=== PATIENT | female | born 1965 | race Two or more races ===

== ENCOUNTER 2020-04-05 12:19 | Day surgery (SDC) | payer OTHER, SELFPAY ==
--- NOTE | 2020-04-04 11:04 | P.CONAN_ITS ---
Documented by User: Shruti Lezama 04/04/20 11:05 HPI - Anesthesia Eval Consult details Narrative: 54yo F for Epidural Steroid Injection,Transforaminal epidural Injection,L5 TO S1 [facility] Past Medical History Medical History Back pain Depression Social History Social History Smoking Status: Never smoker Use of substances other than those prescribed or required for medical reasons: Yes Substance Use Frequency: Socially Advance Directives: No Advance Directives Information Provided: No Meds Allergies Allergy/AdvReac Type Severity Reaction Status Date / Time aspirin Allergy Intermediate Abdominal Verified 04/05/20 12:30 Pain Compazine Allergy Severe Anaphylaxis Uncoded 04/05/20 12:30 Home Medications Medication Instructions Recorded Confirmed Type acetaminophen [Tylenol] 325 mg PO QID PRN 04/01/20 04/01/20 History buspirone 10 mg PO BID 04/01/20 04/01/20 History citalopram [Celexa] 20 mg PO DAILY 04/01/20 04/01/20 History loratadine 10 mg PO DAILY 04/01/20 04/01/20 History omega-3 fatty acids [Starr 3 Fish 1,000 mg PO DAILY 04/01/20 04/01/20 History Oil Concentrate] baclofen 20 mg PO BEDTIME 04/05/20 04/05/20 History sertraline mg PO DAILY 04/05/20 History Exam Exam Date and Time: April 04, 2020 1104 Assessment and Plan Assessment Anesthesia Assessment: Chart Reviewed Documented by User: Shanell Campos 04/05/20 12:49 [facility] Past Medical History Medical History Back pain Depression Social History Social History Smoking Status: Never smoker Use of substances other than those prescribed or required for medical reasons: Yes Substance Use Frequency: Socially Advance Directives: No Advance Directives Information Provided: No Meds Allergies Allergy/AdvReac Type Severity Reaction Status Date / Time aspirin Allergy Intermediate Abdominal Verified 04/05/20 12:30 Pain Compazine Allergy Severe Anaphylaxis Uncoded 04/05/20 12:30 Home Medications Medication Instructions Recorded Confirmed Type acetaminophen [Tylenol] 325 mg PO QID PRN 04/01/20 04/01/20 History buspirone 10 mg PO BID 04/01/20 04/01/20 History citalopram [Celexa] 20 mg PO DAILY 04/01/20 04/01/20 History loratadine 10 mg PO DAILY 04/01/20 04/01/20 History omega-3 fatty acids [Starr 3 Fish 1,000 mg PO DAILY 04/01/20 04/01/20 History Oil Concentrate] baclofen 20 mg PO BEDTIME 04/05/20 04/05/20 History sertraline mg PO DAILY 04/05/20 History Exam Airway Mallampati Class: II TM Dist: >3cm Neck ROM: Full Assessment and Plan Assessment Anesthesia Assessment: Anesthesia Plan Discussed and Chart Reviewed Final Anesthetic Review NPO: Yes ASA Class: II Final Preanesthetic Review: No Changes in Pt Med Stat, Meds/Allgs Chart Reviewed, Consent Obtained/Reviewed and Anes Risks/Benef Reviewed Patient Risk: Low Procedure Risk: Low Assessment/Block/Sedation in SS: Assess/Block/Sedation-SS Anesthetic Plan Anesthetic Plan: MAC: Disposition: Standard PACU
--- NOTE | 2020-04-05 07:51 | MHC.SHP ---
Pre-Procedural Eval Section B Chief Complaint: RADICULOPATHY LUMBAR REGION Details of Present Illness: DDD lumbar spine Allergies: Allergies Allergy/AdvReac Type Severity Reaction Status Date / Time aspirin Allergy Unknown Verified 01/04/20 00:00 Compazine Allergy Unknown Uncoded 01/04/20 00:00 Review of Systems Sugical H&P ROS: Negative: Constitution, Cardiovascular, Respiratory, Neurological, Psychiatric, Hem-Onc, Allergic/Immunologic, Gastrointestinal, Genitourinary, Musculoskeletal, Integumentary, Endocrine and Eyes/Ears/Nose/Throat Exam Surgical H&P Exam: Normal: HEENT, Normal: Heart, Normal: Lungs, Normal: Extremities, Normal: Abdomen, Normal: Skin and Normal: Neurological Plan Diagnosis/Plan: Unchanged Patient has been examined and remains a candidate for the planned procedure
[2020-04-05 12:31] VITALS: BMI 24.4
[2020-04-05 12:41] VITALS: BP 155/90; PULSE 62; RESP 16; TEMP 36.3; O2SAT 100
[2020-04-05] MEDS: Lactated Ringers 1,000 ML 100 ML IVCONT (12:49)
--- NOTE | 2020-04-05 12:55 | FL_ITS ---
EXAMINATION: XR FLUOROSCOPY WITH IMAGES CLINICAL INFORMATION: Fluoroscopy for epidural steroid injection lumbosacral junction COMPARISON: Fluoroscopic spot images 06/20/2019 TECHNIQUE: Fluoroscopy performed by Dr. Hill High. Fluoroscopy time: 0.5 minutes DAP: 4.21 Gycm2 Images: 2 FINDINGS: There is interlaminar spinal needle at level L5-S1. Contrast is seen in the posterior epidural space and likely transforaminal extension to the left. FL/FL guidance in OR IMPRESSION: Fluoroscopy for pain management procedure.
[2020-04-05 13:39] VITALS: BP 120/66; PULSE 64; RESP 14; TEMP 36.3; O2SAT 99
[2020-04-05 13:54] VITALS: BP 122/79; PULSE 70; RESP 18; O2SAT 99
[2020-04-05 14:05] VITALS: BP 146/80; PULSE 67; RESP 16; O2SAT 99
--- NOTE | 2020-04-05 16:11 | P.OP_ITS ---
Operative Note Operative Note Narrative: Maggiis very pleasant 54 years old lady who came today into the operating room for implantation of spinal cord stimulator for the treatment of pain related to degenerative disc disease. After obtaining informed consent patient was brought to the operating room, she was positioned prone on operating table, [employer] monitors were applied and patient was deeply sedated. Time-out was performed delineating correct site, side, the nature of the procedure, patient's allergy, preoperative antibiotic. All operating room staff was participating in OR time-out procedure. Patient's low back was prepped with ChloraPrep twice and draped with utility drapes. Sterilely draped C-arm was brought over operating field and sqare picture of L5 vertebrae as was demonstrated on the screen. tilting machine ipsilateral to the left side picture of the pedicle of L5 vertebra on the left was delineated on the screen. 3 mm below the most lowest point of the pedicle the skin infiltration with lidocaine 1% was performed. After that 22 gauge 5 in needle was inserted through the skin and started to advance alongside the x-ray beam in tunnel vision fashion. Several attempts were made to advance the needle into the anterior epidural space. Each time advancement ended up in bony structures a and injection of the contrast demonstrated only perineural spread of the contrast material and no spread of the contrast into the epidural space. The location and the position of L5 vertebra seem to be very much compromise. The interspace between L5 and S1 is practically non-existent. The needle was withdrawn and decision was made to attempt interlaminar epidural steroid injection to alleviate symptoms of the patient. 20 gauge Touhy needle was inserted in the projection of the lamina of the S1 on the left and needle started to advance toward midline epidural space. Loss of resistance technique to air was used to locate epidural space. When loss of resistance felt injection of the contrast was performed demonstrating spread of the contrast in the posterior epidural space. After that treatment solution containing 4 cc of lidocaine 1% preservative-free mixed with Kenalog 40 mg was injected into the epidural space of the patient. The needle was removed sterile dressings were applied. Patient tolerated procedure well she was transferred to PACU where she recovered uneventfully. She went home without immediate complications.
== END 2020-04-05 14:35 | disposition home or self-care (01) ==
PROVIDERS: Visit Provider Anesthesiology
PROC: 3E0R33Z Introduction of Anti-inflammatory into Spinal Canal, Percutaneous Approach (ICD-10-PCS; CPT 62323; principal; 2020-04-05 13:30)
DX: M54.16 Radiculopathy, lumbar region (principal); M47.816 Spondylosis without myelopathy or radiculopathy, lumbar region; Z79.899 Other long term (current) drug therapy; Z88.8 Allergy status to other drugs, medicaments and biological substances
CPT/HCPCS: 62323; J2250; J3010; J3300; Q9967

== ENCOUNTER → 2020-11-11 08:46 | Outpatient (BNVA) | payer OTHER, SELFPAY | PROVIDERS: Visit Provider Anesthesiology | DX: M79.18 Myalgia, other site (principal); M51.36 Other intervertebral disc degeneration, lumbar region | CPT/HCPCS: 99212 ==

== ENCOUNTER → 2021-03-12 08:41 | Outpatient (BNVA) | payer OTHER, SELFPAY | PROVIDERS: PCP Internal Medicine; Visit Provider Anesthesiology | DX: M79.18 Myalgia, other site (principal); M51.36 Other intervertebral disc degeneration, lumbar region | CPT/HCPCS: 99212 ==

== ENCOUNTER 2021-05-26 08:00 | Outpatient (RCR) | payer OTHER, SELFPAY ==
--- NOTE | 2021-04-08 09:58 | MHC.PT.EP ---
[facility] [place] Office [place] Office [place] Office [address] Halle Curtis [address] [phone] F: [phone] F: [phone] F: [phone] F: [phone] Physical Therapy Plan of Care Date of Evaluation: Date of Surgery: spinal cord stimulator 04/05/20 Diagnosis: cervicalgia Assessment: Patient is a 55 year old R handed female who presents with s/s consistent with cervicalgia. She works with daily job demands including [employer] work but she does not lift more than 5 lbs. 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 Patient past medical history includes fibrymyalgia. Current impairments include pain, posture, ROM, strength, activity tolerance and functional mobility. Functional limitations include decreased ability to lift, carry, sit, turn head, drive, and perform weight bearing activities.. Patient is motivated with good rehab potential. Skilled PT will address impairments and functional limitations in order to achieve goals. Frequency and Duration: The patient will be seen 2x/week for 5 weeks Short Term Goals: I with HEP - 2 weeks C-spine rotation 74 b/l - 3 weeks Reduced LS TP - 3 weeks Usp Goals: Improved postural awareness - 5 weeks MT/LT 4/5 b/l - 5 weeks b/l ER 4/5 - 5 weeks NPDI 12% or less - 5 weeks Treatment Plan: Modalities to reduce pain, spasms and effusion. Manual therapy to restore motion and function. Therapeutic exercise to improve strength and flexibility. Neuromuscular re-education for posture and balance. Therapeutic activities to return to functional activities of daily living. Electronically signed by: Jonah Tucker, PT Please sign and return to therapist. Thank you for your referral.
--- NOTE | 2021-08-01 10:54 | MHC.PT.DC ---
[facility] [place] Office [place] Office [place] Office [address] Halle Curtis [address] [phone] F: [phone] F: [phone] F: [phone] F: [phone] Physical Therapy Discharge Report Diagnosis: cervicalgia Date of Surgery: spinal cord stimulator attempted on 04/05/20 but unable - injection given Date of Evaluation: 04/08/21 Date of Discharge: 05/26/21 Treatments to Date: 6 Cancellations to Date: 0 No Shows to Date: 0 Discharge Status: Independent with HEP Discharge Summary: Pt elected to transition to HEP after 05/26 appointment. Improving postural awareness. Reduced tissue tension and good carryover with postural ex. We will discuss plan to d/c to HEP at next visit. Electronically signed by: Jonah Tucker, PT Please sign and return to therapist. Thank you for your referral.
== END 2021-08-01 10:54 | disposition home or self-care (01) ==
LOC: HO.PTCHIC 08:00
PROVIDERS: PCP Internal Medicine; Visit Provider Anesthesiology
DX: M54.2 Cervicalgia (principal)
CPT/HCPCS: 97014; 97110; 97140; 97162

== ENCOUNTER 2022-01-29 12:23 | Outpatient (REF) | payer OTHER, SELFPAY ==
[2022-01-29 13:49] LABS: MANUAL DIFF FLAG NO
[2022-01-29 13:53] LABS: Basophils Percent Auto 0.2 % (0-2); Eosinophils Absolute Auto 0.1 X10*3/uL (0.0-0.4); Hematocrit 40.5 % (37.0-47.0); Hemoglobin 13.2 g/dl (12.0-16.0); Imm Gran Abs Auto 0.01 X10*3/uL (0.00-0.03); Imm Gran Pct Auto 0.2 % (0.0-0.4); Lymphocytes Absolute Auto 2.2 X10*3/uL (1.2-4.9); Lymphocytes Percent Auto 44.3 % (20-40); Mean Corpuscular HGB Conc 32.6 g/dl (31.0-35.0); Mean Corpuscular Hemoglobin 26.5 pg (27.0-33.0); Mean Corpuscular Volume 81.3 fL (80.0-98.0); Mean Platelet Volume 11.8 fL (9.4-12.3); Monocytes Absolute Auto 0.4 X10*3/uL (0.1-1.2); Monocytes Percent Auto 8.6 % (2-11); Neutrophils Absolute Auto 2.2 x10*3/uL (2.0-8.3); Neutrophils Percent Auto 45.7 % (45-73); Platelet Count 241 X10*3/uL (160-400); Red Blood Count 4.98 X10*6/uL (4.20-5.50); Red Cell Distribution Width 12.9 % (11.0-16.0); White Blood Count 4.9 X10*3/uL (4.8-10.8)
[2022-01-29 14:14] LABS: Alanine Aminotransferase 19 U/L (0-31); Albumin Level 4.8 g/dL (3.5-5.0); Alkaline Phosphatase 82 U/L (39-117); Anion Gap 14 (12-20); Aspartate Amino Transferase 21 U/L (5-31); Bilirubin Total 0.3 mg/dL (0.0-1.0); Blood Urea Nitrogen 8 mg/dL (9-16); Carbon Dioxide 29 mmol/L (22-29); Chloride 101 mmol/L (96-108); Cholesterol 183 mg/dL; Estimated Glomerular Filt Rate > 60; Glucose Fasting 100 mg/dL (60-99); HDL Cholesterol 46 mg/dL; LDL Cholesterol Calculated 97 mg/dl; Potassium 4.5 mmol/L (3.3-5.1); Sodium 139 mmol/L (135-145); Triglycerides 204 mg/dL
== END 2022-01-29 12:24 | disposition home or self-care (01) ==
LOC: HO.10HDL 12:23
PROVIDERS: Visit Provider Internal Medicine
DX: Z00.00 Encounter for general adult medical examination without abnormal findings (principal); E78.00 Pure hypercholesterolemia, unspecified; F32.5 Major depressive disorder, single episode, in full remission; I10 Essential (primary) hypertension
CPT/HCPCS: 36415; 80053; 80061; 85025

== ENCOUNTER 2022-12-10 12:08 | Outpatient (REF) | payer OTHER, SELFPAY ==
[2022-12-10 14:42] LABS: Alanine Aminotransferase 20 U/L (0-31); Albumin Level 4.6 g/dL (3.5-5.0); Alkaline Phosphatase 76 U/L (39-117); Anion Gap 12 (12-20); Aspartate Amino Transferase 28 U/L (5-31); Bilirubin Total 0.7 mg/dL (0.0-1.0); Blood Urea Nitrogen 16 mg/dL (9-16); Calcium 10.1 mg/dL (8.4-10.2); Carbon Dioxide 27 mmol/L (22-29); Chloride 106 mmol/L (96-108); Cholesterol 166 mg/dL; Estimated Glomerular Filt Rate > 60; Glucose Fasting 101 mg/dL (60-99); HDL Cholesterol 44 mg/dL; LDL Cholesterol Calculated 93 mg/dl; Potassium 4.1 mmol/L (3.3-5.1); Sodium 141 mmol/L (135-145); Total Protein 7.5 g/dL (6.5-8.0); Triglycerides 145 mg/dL
== END 2022-12-10 12:09 | disposition home or self-care (01) ==
LOC: HO.10HDL 12:08
PROVIDERS: Visit Provider Internal Medicine
DX: E78.2 Mixed hyperlipidemia (principal); R19.5 Other fecal abnormalities
CPT/HCPCS: 36415; 80053; 80061; 85025

== ENCOUNTER 2023-01-01 09:22 | Day surgery (SDC) | payer OTHER, SELFPAY ==
--- NOTE | 2022-12-30 13:21 | HO.ANESPROP2 ---
Documented by User: Shruti Lezama NP 12/30/22 13:22 HPI - Anesthesia Eval Consult details Narrative: 57yo F for Colonoscopy PMFSH Active Problems Active Problems: All Active Problems (Updated 03/12/21 @ 09:03 by Hill High MD) Cervicalgia (Acute) Disc degeneration, lumbar (Acute) Myofascial pain syndrome (Acute) Past Medical History Medical History Anxiety Back pain Cervicalgia COVID-19 Depression Disc degeneration, lumbar HLD (hyperlipidemia) Myofascial pain syndrome Surgical History Surgical History (Updated 01/01/23 @ 10:32 by Nayely Juárez RN) H/O: hysterectomy Hx of colonoscopy Social History Social History Patient Tobacco Use Status: Former Tobacco user Are you DNR?: No Advance Directives: No Advance Directives Information Provided: Yes Nutrition Risks: No Nutritional Risk Meds Allergies Allergy/AdvReac Type Severity Reaction Status Date / Time aspirin Allergy Intermediate Abdominal Verified 01/01/23 10:33 Pain Compazine Allergy Severe Anaphylaxis Uncoded 04/05/20 12:30 Home Medications Medication Instructions Recorded Confirmed Last Taken Type acetaminophen 325 mg tablet 325 mg PO QID PRN Pain 04/01/20 11/11/20 Unknown History (Tylenol) buspirone 10 mg tablet 10 mg PO BID 04/01/20 11/11/20 Unknown History citalopram 20 mg tablet (Celexa) 20 mg PO DAILY 04/01/20 11/11/20 Unknown History loratadine 10 mg tablet 10 mg PO DAILY 04/01/20 11/11/20 Unknown History omega-3 fatty acids 1,000 mg PO DAILY 04/01/20 11/11/20 Unknown History baclofen 20 mg tablet 20 mg PO BEDTIME 04/05/20 11/11/20 Unknown History duloxetine 30 mg capsule,delayed 30 mg PO DAILY 03/12/21 Unknown History release Exam Exam Date and Time: December 30, 2022 1321 Pertinent Lab Results Pertinent Lab Results: Laboratory Tests 12/10/22 12/10/22 12:16 12:16 WBC 3.7 L Hgb 12.4 Hct 37.9 Plt Count 194 Sodium 141 Potassium 4.1 Chloride 106 Carbon Dioxide 27 BUN 16 Creatinine 0.76 Assessment and Plan Assessment Anesthesia Assessment: Chart Reviewed Documented by User: Amber Singh MD 01/01/23 11:13 PMF Past Medical History Medical History Anxiety Back pain Cervicalgia COVID-19 Depression Disc degeneration, lumbar HLD (hyperlipidemia) Myofascial pain syndrome Family History Family history of problems with anesthesia: No Surgical History Surgical History (Updated 01/01/23 @ 10:32 by Nayely Juárez RN) H/O: hysterectomy Hx of colonoscopy History of Problems with Anesthesia: No Social History Social History Patient Tobacco Use Status: Former Tobacco user Are you DNR?: No Advance Directives: No Advance Directives Information Provided: Yes Nutrition Risks: No Nutritional Risk Meds Allergies Allergy/AdvReac Type Severity Reaction Status Date / Time aspirin Allergy Intermediate Abdominal Verified 01/01/23 10:33 Pain Compazine Allergy Severe Anaphylaxis Uncoded 04/05/20 12:30 Home Medications Medication Instructions Recorded Confirmed Last Taken Type acetaminophen 325 mg tablet 325 mg PO QID PRN Pain 04/01/20 11/11/20 Unknown History (Tylenol) buspirone 10 mg tablet 10 mg PO BID 04/01/20 11/11/20 Unknown History citalopram 20 mg tablet (Celexa) 20 mg PO DAILY 04/01/20 11/11/20 Unknown History loratadine 10 mg tablet 10 mg PO DAILY 04/01/20 11/11/20 Unknown History omega-3 fatty acids 1,000 mg PO DAILY 04/01/20 11/11/20 Unknown History baclofen 20 mg tablet 20 mg PO BEDTIME 04/05/20 11/11/20 Unknown History duloxetine 30 mg capsule,delayed 30 mg PO DAILY 03/12/21 Unknown History release Exam Airway Mallampati Class: I TM Dist: >3cm Neck ROM: Full Loose/Missing/Broken Teeth: Yes and No Heart: rr Lungs: cta Assessment and Plan Assessment Anesthesia Assessment: Anesthesia Plan Discussed Final Anesthetic Review Family History of Problems with Anesthesia: No History of Problems with Anesthesia: No NPO: Yes ASA Class: II Final Preanesthetic Review: No Changes in Pt Med Stat, Meds/Allgs Chart Reviewed, Consent Obtained/Reviewed and Anes Risks/Benef Reviewed Patient Risk: Low Procedure Risk: Low Anesthetic Plan Anesthetic Plan: MAC: Disposition: Standard PACU
[2023-01-01 06:22] VITALS: BMI 23.4
--- OUTSIDE RECORDS SUMMARY | 2023-01-01 09:24 | XMS_ITS | Continuity of Care Document ---
Author Name Unknown Organization [facility] [employer] Address [address], [address] [place] [address]- Care Team Providers Care Landscape Painter Name Role Phone Abril De Paz DO Primary Care Physician [phone] Encounter [place] Date(s): 04/04/20 - 04/11/20 [facility] [employer] [address], [address] [place] [address]- Attending Physician: Savannah PORTILLO, Hany Scott Allergies, Adverse Reactions, Alerts Substance Reaction Severity Status aspirin STOMACH PAIN CAUSE A HOLE Ac tive Compazine difficulty breathing Active Immunizations Not Given Vaccine Date Status Refusal Reason influenza virus vaccine, inactivated 05/08/15 Not Given Patient Refuses pneumococcal 23-valent vaccine 05/08/15 Not Given Patient Refuses Medications Fish Oil By Mouth, 0 Refills, Maintenance, 02/27/16 15:36:24 Start Date: 02/27/16 Status: Ordered ibuprofen 600 mg oral tablet 1 tablet = 600 mg, By Mouth, Every 6 hours, # 40 tablet, 2 Refills, Maintenance, 05/09/15 16:05:12,Tablet Start Date: 05/09/15 Status: Ordered Multivitamin Daily, 0 Refills, Maintenance, 02/27/16 15:36:36 Start Date: 02/27/16 Status: Ordered Pt. states she takes Avamigran, for migraines. It is a medicine she recieved the medication form Pt. states she takes Avamigran, for migraines. It is a medicine she recieved the medication form [facility] Refills 0, Maintenance, 10/08/15 10:00:03, Compound Start Date: 10/08/15 Status: Ordered Tylenol 325 mg oral tablet 325 mg, 1, tablet, By Mouth, PRN, Refills 0, Maintenance, Migraine Headache, 10/08/15 10:02:13 Start Date: 10/08/15 Status: Ordered Vitamin D3 By Mouth, 0 Refills, Maintenance, 04/07/18 11:29:20 EDT Start Date: 04/07/18 Status: Ordered Problem List Condition Effective Dates Status Health Status Inform ant Anxiety(Confirmed) Active Overactive bladder(Confirmed) Active Last pap smear 02/07/15 negati ve with negative HPV. 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 Carpet Binder recommended for visits(Confirmed) Active Menopausal state(Confirmed) Active Osteopenia on DEXA scan from [facility] 02/11/18. Femurs T score -1.5, z score -0.8. Spine normal(Confirmed) Active Possible pelvic mass - dilat ed tubular structure inseparable on MRI from the right ovary. Not seen on ultrasound. See 04/07/18 note and addendums. ALEXEI score low risk(Confirmed) Active Poor historian - no ability to distinguish between relevant and non-relevant history(Confirmed) Active Frequent UTI(Confirmed) Active Sciatica(Confirmed) Active Vitamin D deficiency(Confirmed) Active Vital Signs Most recent to oldest [Reference Range]: 1 Height 152.40 cm (04/04/20 10:36 AM) Weight 58.18 kg (04/04/20 10:36 AM) Body Mass Index [18.5-24.99] 25.05 *H* (04/04/20 10:36 AM) Blood Pressure [90-138/55-84 mm Hg] 122/ 82mm Hg (04/04/20 10:36 AM) Blood pressure sites Arm, left (04/04/20 10:36 AM) Weight Obtained Via Standing scale (04/04/20 10:36 AM) Social History Social History Type Response Smoking Status Former smoker; Type: Cigarettes; Other: quit 17 years ago; entered on: 02/07/15 Sex
--- OUTSIDE RECORDS SUMMARY | 2023-01-01 09:24 | XMS_ITS | Continuity of Care Document ---
Author Name Unknown Organization [facility] [employer] Address [address], [address] [place] [address]- Care Team Providers Care History Faculty Member Name Role Phone Adela PORTILLO, Evy Primary Care Physician Encounter [facility] Date(s): 08/22/20 - 08/29/20 [facility] [employer] [address], [address] [place] [address]- Attending Physician: Savannah PORTILLO, Hany Scott Allergies, Adverse Reactions, Alerts Substance Reaction Severity Status aspirin STOMACH PAIN CAUSE A HOLE Ac tive Compazine difficulty breathing Active Immunizations Not Given Vaccine Date Status Refusal Reason pneumococcal 23-valent vaccine 05/08/15 Not Given Patient Refuses influenza virus vaccine, inactivated 05/08/15 Not Given Patient Refuses Medications escitalopram 5 mg oral tablet 1 tablet = 5 mg, By Mouth, Daily, # 30 tablet, 2 Refills, Maintenance, 08/05/20 9:16:00 EST, Tablet, [id number], Partial fill upon patient request if the prescription is for a schedule II opioid drug., 152.4, cm, 08/05/20 8:07:00 EST, Height Start Date: 08/05/20 Status: Ordered Fish Oil By Mouth, 0 Refills, Maintenance, 02/27/16 15:36:24 Start Date: 02/27/16 Status: Ordered ibuprofen 600 mg oral tablet 1 tablet = 600 mg, By Mouth, Every 6 hours, # 40 tablet, 2 Refills, Maintenance, 05/09/15 16:05:12,Tablet Start Date: 05/09/15 Status: Ordered Multivitamin Daily, 0 Refills, Maintenance, 02/27/16 15:36:36 Start Date: 02/27/16 Status: Ordered Tylenol 325 mg oral tablet [...] pap smears needed(Confirmed) Active Cervical radiculitis(Confirmed) Active Chronic low back pain with sciatica(Confirmed) Active Migraines without aura(Confirmed) Active Multicystic right ovary - se e ultrasound report 03/18/18(Confirmed) Active Depression(Confirmed) Active Former smoker - quit in 1999(Confirmed) Active 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 Femurs T score -1.5, z score [...] oldest [Reference Range]: 1 Height 152.40 cm (08/22/20 4:04 PM) Weight 54.4 kg (08/22/20 4:04 PM) Body Mass Index [18.5-24.99] 23.42 (08/22/20 4:04 PM) Blood Pressure [90-138/55-84 mm Hg] 118/ 80mm Hg (08/22/20 4:04 PM) Blood pressure sites Arm, left (08/22/20 4:04 PM) Weight Obtained Via Standing scale (08/22/20 4:04 PM) Social History Social History Type Response Smoking Status Former smoker, quit more than 30 days ago; Type: Cigarettes; Started at age: 17; Tobacco use times per day: 1 PPD; Stopped at age: 34; entered on: 08/05/20 Sex
--- OUTSIDE RECORDS SUMMARY | 2023-01-01 09:24 | XMS_ITS | Continuity of Care Document ---
Author Name Unknown Organization [facility] Adult Address [address] [place] [address]- Care Team Providers Care Case Management Associate Name Role Phone Evy Chapman MD Primary [id number] Adult [address] [place] [address]- Encounter Diagnosis Depression(Discharge Diagnosis) - 11/15/20 Anxiety(Discharge Diagnosis) - 11/15/20 Cervical radiculitis(Discharge Diagnosis) - 11/15/20 Chronic low back pain with sciatica(Discharge Diagnosis) - 11/15/20 Hypercholesterolemia(Discharge Diagnosis) - 11/15/20 Hypertriglyceridemia(Discharge Diagnosis) - 11/15/20 Vitamin D deficiency(Discharge Diagnosis) - 11/15/20 Diabetes mellitus screening(Discharge Diagnosis) - 11/15/20 Attending Physician: Jorge Chapman MDlis Allergies, Adverse Reactions, Alerts Substance Reaction Severity Status aspirin STOMACH PAIN CAUSE A HOLE Ac tive Compazine difficulty breathing Active Immunizations Not Given Vaccine Date Status Refusal Reason pneumococcal 23-valent vaccine 05/08/15 Not Given Patient Refuses influenza virus vaccine, inactivated 05/08/15 Not Given Patient Refuses Medications escitalopram 5 mg oral tablet 1 tablet = 5 mg, By Mouth, Daily, # 90 tablet, 1 Refills, Maintenance, 11/15/20 15:30:00 EDT, Tablet, [facility]/pharmacy #[id number], Partial fill upon patient request if the prescription is for a schedule II opioid drug., 152, cm, 11/15/20 14:51:00 EDT, Height Start Date: 11/15/20 Status: Ordered Fish Oil By Mouth, 0 Refills, Maintenance, 02/27/16 15:36:24 Start Date: 02/27/16 Status: Ordered ibuprofen 600 mg oral tablet 1 tablet = 600 mg, By Mouth, Every 6 hours, # 40 tablet, 2 Refills, Maintenance, 05/09/15 16:05:12,Tablet Start Date: 05/09/15 Status: Ordered loratadine 10 mg oral tablet 10 mg, 1, tablet, By Mouth, Daily, # 90 tablet, Refills 1, Tot. Refills 1, Maintenance, 11/15/20 15:30:00 EDT, Route to Pharmacy Electronically, [facility]/pharmacy #[id number], Partial fill upon patient request if the prescription is for a schedule II opioid drug... Start Date: 11/15/20 Status: Ordered Multivitamin Daily, 0 Refills, Maintenance, [...] state(Confirmed) Active Osteopenia on DEXA scan from [facility] 02/11/18. Femurs T score -1.5, z score -0.8. Spine normal(Confirmed) Active Possible pelvic mass - dilat ed tubular structure inseparable on MRI from the right ovary. Not seen on ultrasound. See 04/07/18 note and addendums. ALEXEI score low risk(Confirmed) Active Poor historian - no ability to distinguish between relevant and non-relevant history(Confirmed) Active Frequent UTI(Confirmed) Active Vitamin D deficiency(Confirmed) Active Diagnosis Diagnosis Type Effective Dates Health Status Clinical Service Informant Depression Discharge Diagnosis 11/15/20 Anxiety Discharge Diagnosis 11/15/20 Cervical radiculitis Discharge Diagnosis 11/15/20 Chronic low back pain with sciatica Discharge Diagnosis 11/15/20 Hypercholesterolemia Discharge Diagnosis 11/15/20 Hypertriglyceridemia Discharge Diagnosis 11/15/20 Vitamin D deficiency Discharge Diagnosis 11/15/20 Diabetes mellitus screening Discharge Diagnosis 11/15/20 Vital Signs Most recent to oldest [Reference Range]: 1 Height 152 cm (11/15/20 2:51 PM) Weight 55.6 kg (11/15/20 2:51 PM) Oxygen Saturation [94-100 %] 97 % (11/15/20 2:51 PM) Pulse Rate [55-90 bpm] 81 bpm (11/15/20 2:51 PM) Body Mass Index [18.5-24.99] 24.07 (11/15/20 2:51 PM) Blood Pressure [90-138/55-84 mm Hg] 115/ 72mm Hg (11/15/20 2:51 PM) Mode of Delivery (Oxygen) Room air (11/15/20 2:51 PM) Blood pressure sites Arm, left (11/15/20 2:51 PM) Weight Obtained Via Standing scale (11/15/20 2:51 PM) Social History Social History Type Response Smoking Status Former smoker, quit more than 30 days ago; Type: Cigarettes; Started at age: 17; Tobacco use times per day: 1 PPD; Stopped at age: 34; entered on: 08/05/20 Sex
--- OUTSIDE RECORDS SUMMARY | 2023-01-01 09:24 | XMS_ITS | Continuity of Care Document ---
Author Name Unknown Organization [facility] Adult Address [address] [place] [address]- Care Team Providers Care Beach Patrol Lieutenant Name Role Phone Adela PORTILLO, Evy Primary Care Physician [place] [facility] [place](s): 03/17/21 - 04/16/21 [facility] Adult [address] [place] [address]- Allergies, Adverse Reactions, Alerts Substance Reaction Severity [...] 1 Refills, Maintenance, 11/15/20 15:30:00 EDT, Tablet, [facility]/pharmacy #[id number], Partial fill upon patient request if the [...] 11/15/20 15:30:00 EDT, Route to Pharmacy Electronically, [id number], Partial fill upon patient request if the [...] state(Confirmed) Active Osteopenia on DEXA scan from [facility] 02/11/18. Femurs T score -1.5, z score -0.8. Spine normal(Confirmed) Active Possible pelvic mass - dilat ed tubular structure inseparable on MRI from the right ovary. Not seen on ultrasound. See 04/07/18 note and addendums. ALEXEI score low risk(Confirmed) Active Poor historian - no ability to distinguish between relevant and non-relevant history(Confirmed) Active Frequent UTI(Confirmed) Active Vitamin D deficiency(Confirmed) Active Social History Social History Type Response Smoking Status Former smoker, quit more than 30 days ago; Type: Cigarettes; Tobacco use times per day: 1 PPD; Started at age: 17; Stopped at age: 34; entered on: 08/05/20 Sex
--- OUTSIDE RECORDS SUMMARY | 2023-01-01 09:24 | XMS_ITS | Continuity of Care Document ---
Author Name Unknown Organization [facility] [employer] Address [address], [address]t [place] [address]- Care Team Providers Care Deputy United States Marshal Name Role Phone Abril De Paz DO Primary Care Physician [facility] [facility] Date[place] 03/21/20 - 03/28/20 [facility] [employer] [address], [address]th [place] [address]- [facility] Attending Physician: Savannah PORTILLO, Hany Scott Referring Physician: Not on Staff, Referring MD Allergies, Adverse Reactions, Alerts Substance Reaction Severity [...] medicine she recieved the medication form [facility] [employer] [facility] Refills 0, Maintenance, 10/08/15 10:00:03, Compound [...] pap smear 02/07/15 negati ve with negative HPV(Confirmed) Active Cervical radiculitis(Confirmed) Active Migraines without aura(Confirmed) Active Multicystic right ovary - se e ultrasound report 03/18/18(Confirmed) Active Former smoker - quit in 1999(Confirmed) Active 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 7Th Grade Social Studies Teacher recommended for visits(Confirmed) Active Menopausal state(Confirmed) Active Osteopenia on DEXA scan from [facility] 02/11/18. Fermurs T score -1.5, z score -0.8. Spine [...] oldest [Reference Range]: 1 Height 152.40 cm (03/21/20 5:12 PM) Weight 58.18 kg (03/21/20 5:12 PM) Body Mass Index [18.5-24.99] 25.05 *H* (03/21/20 5:12 PM) Blood Pressure [90-138/55-84 mm Hg] 148/ 98mm Hg *H* (03/21/20 5:12 PM) Blood pressure sites Arm, left (03/21/20 5:12 PM) Weight Obtained Via Standing scale (03/21/20 5:12 PM) Social History Social History Type Response Smoking Status Former smoker; Type: Cigarettes; Other: quit 17 years ago; entered on: 02/07/15 Sex
--- OUTSIDE RECORDS SUMMARY | 2023-01-01 09:24 | XMS_ITS | Continuity of Care Document ---
Author Name Unknown Organization [facility] Address [address] [place] [address]- Care Team Providers Care Savings Counselor Name Role Phone Adela PORTILLO, Evy Primary Care Physician Encounter 05/04/22 - 06/05/22 [facility] [address], [address] [place] [address]- Attending Physician: Claudette Pineda MD Admitting Physician: Claudette Pineda MD Referring Physician: Claudette Pineda MD Allergies, Adverse Reactions, Alerts Substance Reaction [...] Maintenance, 11/15/20 15:30:00 EDT, Tablet, [facility]/pharmacy #[id number], Partial fill upon patient request if the [...] 11/15/20 15:30:00 EDT, Route to Pharmacy Electronically, [facility]/pharmacy #[id number], Partial fill upon patient [...] Date: 04/07/18 Status: Ordered Problem List Condition Confirmation Course Effective Dates Status Health Status Informant Anxiety Confirmed Active Overactive bladder Confirmed Active Last pap smear 02/07/15 negative with negative HPV. 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 Femurs T score -1.5, z score -0.8. Spine normal Confirmed Active Possible pelvic mass - dilated tubular structure inseparable on MRI from the right ovary. Not seen on ultrasound. See 04/07/18 note and addendums. ALEXEI score low risk Confirmed Active Poor historian - no ability to distinguish between relevant and non-relevant history Confirmed Active Frequent UTI Confirmed Active Vitamin D deficiency Confirmed Active Social History Social History Type Response Smoking Status Former smoker, quit more than 30 days ago; Type: Cigarettes; Started at age: 17; Tobacco use times per day: 1 PPD; Stopped at age: 34; entered on: 08/05/20 Sex Patient Care team information Care Team Personnel Name: Evy Chapman MD Position: S Primary Care Physician Member Role: PCP Address: Address: [address] [place] [address] 3rd Floor [facility] [place] [address]- Care Team Related Persons Name: ERICA JURADO Address: home [address] [place] [address] Name: SEAN VIERA Address: home [address] [place] [address] Name: SILVESTRE KUMAR Address: home [address] [address]
--- OUTSIDE RECORDS SUMMARY | 2023-01-01 09:24 | XMS_ITS ---
Author Name Juan Arias Address [address] [place] [address] Organization [facility] Address [address] [place] [address] Care Team Providers Care Binding Cutter Name Role Phone Juan Arias Unavailable [phone] PROBLEMS Type Condition ICD9-CM Code GZH01-NH Code Onset Dates Condition Status SNOMED Code Problem Colon cancer screening Z12.11 Active 712364812 Problem Family history of colon cancer Z80.0 Active 354159695 Problem Rectal bleeding K62.5 Active 32199366 ALLERGIES Substance Reaction Event Type Date Status Compazine Unknown Drug Allergy October, Active ENCOUNTERS Encounter Location Date Diagnosis [facility] Outpatient [address] [place] [phone] Dec, [facility] [address] [place] [phone] October, [facility] [address] [place] [phone] October, Family history of colon cancer Z80.0 ; Rectal bleeding K62.5 and Colon cancer screening Z12.11 [facility] [address] [place] [phone] May, [facility] [address] [place] [phone] Mar, IMMUNIZATIONS No Known Immunizations SOCIAL HISTORY Qualifiers Date Never Smoker REASON FOR REFERRAL FUNCTIONAL STATUS PLAN OF CARE Activity Details VITAL SIGNS Weight 120 lbs 2022-10-16 Height 60 in 2022-10-16 BMI 23.43 kg/m2 2022-10-16 Temperature 98.4 degrees Fahrenheit Blood pressure systolic 000 mm Hg Blood pressure diastolic 00 mm Hg 2022-10 MEDICATIONS Medication Instructions Dosage Frequency Start Date End Date Duration Status Atorvastatin Calcium 40 MG 90 Active Dulcolax (colon prep) 5 MG Orally two tablets twice a day for one day take at 3:00 p.m and 7:00p.m. October, 1 day Active Benzonatate 200 MG 10 Active Loratadine 10 MG 30 Active MiraLax (colon prep) 17 GM/SCOOP Orally begin at 5:00 p.m. the day before the procedure 1 238 Gm bottle mixed with Gatorade or Crystal Light October, 1 day Active PROCEDURES Procedure Date Ordered Result Body Site BP SCR NOT PRFRM REC REASON NOS October 16, 2022 TOBACCO NON-USER October 16, 2022 DOC MEDS VERIFIED W/PT OR RE October 16, 2022 COLORECTAL CA SCREEN DOC REV October 16, 2022 RESULTS No Results REASON FOR VISIT screening, fam hx colon ca,rectal bleeding, bowel prep, Patient presents today for BLOOD IN STOOL, blood in stool, BLOOD IN STOOL, Patient presents today for blood in stool, r/s today appt at Insurance Providers Health Insurance Type Health Plan Insurance Address Health Plan Insurance Phone Health Plan Insurance Name Health Plan Coverage Dates Member ID Patient Relationship to Subscriber Patient Address Patient Phone Patient Name Patient Date of Subscriber ID Subscriber Name Subscriber Date of Group No [place] [address] [facility] [id number] [place] self KARTIK MARCE Martin [id number] 1 [employer] Plan [address] [address] [facility] [id number] [email or web address] [employer] Plan self KARTIK MARCE Martin [id number]
--- OUTSIDE RECORDS SUMMARY | 2023-01-01 09:24 | XMS_ITS | Continuity of Care Document ---
Author Name Unknown Organization [facility] Amy richardson [facility] Address [address], 4t [place] [address]- Care Team Providers Care Biotechnologist Name Role Phone Adela PORTILLO, Evy Primary Care Physician [place] [facility] [place]18[place]21 - 07/18/21 [facility] Amy Yeungs [facility] [address], [address]th [place] [address]- Allergies, Adverse Reactions, Alerts Substance Reaction Severity [...] 1 Refills, Maintenance, 11/15/20 15:30:00 EDT, Tablet, [facility]/pharmacy #[id number], Partial fill upon patient request if the [...] 11/15/20 15:30:00 EDT, Route to Pharmacy Electronically, [facility]/pharmacy #[id number], Partial fill upon patient request if [...] from [facility] 02/11/18. Femurs T score -1.5, z score [...]
--- OUTSIDE RECORDS SUMMARY | 2023-01-01 09:24 | XMS_ITS | Continuity of Care Document ---
Author Name Unknown Organization [facility] Address [address] [place] [address]- Care Team Providers Care Car Repossessor Name Role Phone Adela PORTILLO, Evy Primary Care Physician [place] [facility] [place] Date(s): 07/12/20 - 08/25/[address] [address]- Attending Physician: Hany Nuñze MD Admitting Physician: Hany Nuñez MD Referring Physician: Hany Nuñez MD Allergies, Adverse Reactions, Alerts Substance Reaction [...] Refills, Maintenance, 08/05/20 9:16:00 EST, Tablet, [id number], Partial fill upon patient request if the [...] state(Confirmed) Active Osteopenia on DEXA scan from [facility] 02/11/18. Femurs T score -1.5, z score -0.8. Spine normal(Confirmed) Active Possible pelvic mass - dilat ed tubular structure inseparable on MRI from the right ovary. Not seen on ultrasound. See 04/07/18 note and addendums. ALEXEI score low risk(Confirmed) Active Poor historian - no ability to distinguish between relevant and non-relevant history(Confirmed) Active Frequent UTI(Confirmed) Active Sciatica(Confirmed) Active Vitamin D deficiency(Confirmed) Active Social History Social History Type Response Smoking Status Former smoker, quit more than 30 days ago; Type: Cigarettes; Started at age: 17; Tobacco use times per day: 1 PPD; Stopped at age: 34; entered on: 08/05/20 Sex
--- OUTSIDE RECORDS SUMMARY | 2023-01-01 09:24 | XMS_ITS | Continuity of Care Document ---
Author Name Unknown Organization [facility] [employer] Address [address], 4t [place] [address]- Care Team Providers Care Construction Plant Operator Name Role Phone Abril De Paz DO Primary Care Physician [facility] [id number] Date(s): 08/10/19 - 08/20/19 [facility] [employer] [address], [address]th [place] [address]- Attending Physician: Admtr, Sloan Allergies, Adverse Reactions, Alerts Substance Reaction Severity Status aspirin STOMACH PAIN CAUSE A HOLE Ac tive Compazine difficulty breathing Active Immunizations Not Given Vaccine Date Status Refusal Reason influenza virus vaccine, inactivated 05/08/15 Not Given Patient Refuses pneumococcal 23-valent vaccine 05/08/15 Not Given Patient Refuses Medications alendronate 5 mg oral tablet 1 tablet = 5 mg, By Mouth, Daily, 0 Refills, Maintenance, 04/07/18 11:28:41 EDT Start Date: 04/07/18 Status: Ordered Fish Oil By Mouth, 0 [...] a medicine she recieved the medication form Th Pt. states she takes Avamigran, for migraines. [...] Former smoker - quit in 1999(Confirmed) Active Hypercholesterolemia(Confirmed) Active Hypertriglyceridemia(Confirmed) Active Insulin resistance syndrome/ early type II diabetes(Confirmed) Active Upper Sorbian speaking patient - h er Swedish is OK but not great. Potato Chip Fryer recommended for visits(Confirmed) Active Menopausal state(Confirmed) Active Oste[facility] scan [facility] 02/11/18. Fermurs T score -1.5, z score [...]
--- OUTSIDE RECORDS SUMMARY | 2023-01-01 09:24 | XMS_ITS | Continuity of Care Document ---
Author Name Unknown Organization [facility] [employer] Address [address], [address]t [place] [address]- Care Team Providers Care Coordinator Skill Training Program Name Role Phone Adela PORTILLO, Evy Primary Care Physician [place] [facility] Date(s): 08/07/20 - 09/06/20 [facility] Amy Yeungs [facility] [address], [address]th [place] [address]- Allergies, Adverse Reactions, Alerts Substance Reaction Severity [...] Refills, Maintenance, 08/05/20 9:16:00 EST, Tablet, [id number], Partial fill upon patient request if the [...] state(Confirmed) Active Osteopenia on DEXA scan from [facility] 02/11/18. Femurs T score -1.5, z [...]
--- OUTSIDE RECORDS SUMMARY | 2023-01-01 09:24 | XMS_ITS | Continuity of Care Document ---
Author Name Unknown Organization [facility] [employer] [facility] Address [address], 4t [place] [address]- Care Team Providers Care Education And Training Coordinator Name Role Phone Adela PORTILLO, Evy Primary Care Physician En[place] [facility] [place] Date(s): 08/22/20 - 09/21/20 [facility] [employer] [address], [address]th [place] [address]- Attending Physician: Admtr, Ar8 Allergies, Adverse Reactions, Alerts Substance Reaction Severity [...] Refills, Maintenance, 08/05/20 9:16:00 EST, Tablet, [id number], Partial fill upon patient request [...] scan from [facility] 02/11/18. Femurs T score -1.5, z score [...]
--- OUTSIDE RECORDS SUMMARY | 2023-01-01 09:24 | XMS_ITS | Continuity of Care Document ---
Author Name Unknown Organization [facility] Adult Address [address] [place] [address]- Care Team Providers Care Mechanical Engineering Manager Name Role Phone Adela PORTILLO, Evy Primary Care Physician [place] [facility] [place] 08/05/20 - 08/12/20 [facility] Adult [address] [place] [address]- Encounter Diagnosis Anxiety(Discharge Diagnosis) - 08/05/20 Depression(Discharge Diagnosis) - 08/05/20 Migraines without aura(Discharge Diagnosis) - 08/05/20 Hypertriglyceridemia(Discharge Diagnosis) - 08/05/20 Hypercholesterolemia(Discharge Diagnosis) - 08/05/20 Chronic low back pain with sciatica(Discharge Diagnosis) - 08/05/20 Attending Physician: Adela PORTILLO, Evy Allergies, Adverse Reactions, Alerts Substance Reaction Severity [...] 2 Refills, Maintenance, 08/05/20 9:16:00 EST, Tablet, [facility]/pharmacy #[id number], Partial fill upon patient request if the [...] Active Sciatica(Confirmed) Active Vitamin D deficiency(Confirmed) Active Diagnosis Diagnosis Type Effective Dates Health Status Clinical Service Informant Anxiety Discharge Diagnosis 08/05/20 Hypercholesterolemia Discharge Diagnosis 08/05/20 Hypertriglyceridemia Discharge Diagnosis 08/05/20 Migraines without aura Discharge Diagnosis 08/05/20 Depression Discharge Diagnosis 08/05/20 Chronic low back pain with sciatica Discharge Diagnosis 08/05/20 Procedures Procedure Date Related Diagnosis Body Site Status Cholecystectomy 2020 Completed Vital Signs Most recent to oldest [Reference Range]: 1 Height 152.40 cm (08/05/20 8:07 AM) Weight 56.3 kg (08/05/20 8:07 AM) Body Mass Index [18.5-24.99] 24.24 (08/05/20 8:07 AM) Weight Obtained Via Patient/family state d (08/05/20 8:07 AM) Social History Social History Type Response Smoking Status Former smoker, quit more than 30 days ago; Type: Cigarettes; Tobacco use times per day: 1 PPD; Started at age: 17; Stopped at age: 34; entered on: 08/05/20 Sex
[2023-01-01] MEDS: Lactated Ringers 1,000 ML 100 ML IVCONT (10:25)
[2023-01-01 10:32] VITALS: BP 134/84; PULSE 67; RESP 18; TEMP 36.6; O2SAT 99
--- NOTE | 2023-01-01 11:33 | P.BOP_ITS ---
Brief Operative Note Date of Service: 01/01/23 Pre-op diagnosis: Screening Post-op diagnosis: other (Diverticulosis, Internal hemorrhoids) Procedure: Colonoscopy to the cecum Surgeon: Juan Arias Anesthesia: MAC Was an Director Of Revenue used for this Procedure?: No Estimated blood loss (mL): 0 Pathology: none sent Condition: stable Disposition: PACU
[2023-01-01 11:35] VITALS: BP 107/62; PULSE 72; RESP 16; TEMP 36.8; O2SAT 100
[2023-01-01 11:50] VITALS: BP 118/75; PULSE 63; RESP 16; TEMP 36.7; O2SAT 100
[2023-01-01] MEDS: Acetaminophen 325 MG TABLET 650 MG PO (12:03)
--- NOTE | 2023-01-01 23:01 | OP_ITS ---
DATE OF SERVICE: 01/01/2023 SURGEON: Juan Arias MD INDICATIONS: The patient presents for evaluation of colorectal cancer screening, family history of colon cancer, and intermittent rectal bleeding. Full consent obtained from her for that, including risks of bleeding and perforation. PREOPERATIVE DIAGNOSIS: POSTOPERATIVE DIAGNOSIS: PROCEDURE PERFORMED: Colonoscopy to cecum. ESTIMATED BLOOD LOSS: COMPLICATIONS: ANESTHESIA: Medication used, monitored anesthesia care. ASSISTANTS: SPECIMENS: PREOPERATIVE DIAGNOSES: Colorectal cancer screening, family history of colon cancer and intermittent rectal bleeding. POSTOPERATIVE DIAGNOSES: Colorectal cancer screening, family history of colon cancer and intermittent rectal bleeding, sigmoid diverticulosis, and internal hemorrhoids. DESCRIPTION OF PROCEDURE: The patient was placed in the left lateral decubitus position. The digital rectal exam revealed no abnormalities. The Olympus video pediatric colonoscope was entered into the rectum and advanced easily to the cecum. Once in the cecum, I did identify normal-appearing cecal pouch with appendiceal orifice and a normal-appearing ileocecal valve. The entire cecum and ileocecal valve appeared normal. The scope was slowly withdrawn assessing all mucosal surfaces carefully. Preparation was excellent. I did not visualize any sign of polyps, colitis, nor angiodysplasia. There was a mild amount of sigmoid diverticulosis. In the rectum, scope was retroflexed visualizing internal hemorrhoids, but no other pathology. The rectal mucosa appeared normal. The scope was straightened and withdrawn the patient. She tolerated the procedure well and was returned to recovery area in stable condition. IMPRESSION: 1. Sigmoid diverticulosis. 2. Internal hemorrhoids. PLAN: Given her family history of colon cancer, I would recommend a followup coloscopy in 5 years for further screening. She will otherwise see me on a p.r.n. basis. MD ANISHA Matamoros/RICHY / [phone]
== END 2023-01-01 12:40 | disposition home or self-care (01) ==
PROVIDERS: PCP Internal Medicine; Visit Provider Internal Medicine
PROC: 0DJD8ZZ Inspection of Lower Intestinal Tract, Via Natural or Artificial Opening Endoscopic (ICD-10-PCS; CPT 45378; principal; 2023-01-01 10:40)
DX: Z12.11 Encounter for screening for malignant neoplasm of colon (principal); Z80.0 Family history of malignant neoplasm of digestive organs; K57.30 Diverticulosis of large intestine without perforation or abscess without bleeding; K64.8 Other hemorrhoids; E78.5 Hyperlipidemia, unspecified; F41.1 Generalized anxiety disorder; Z79.899 Other long term (current) drug therapy; Z88.8 Allergy status to other drugs, medicaments and biological substances; Z87.891 Personal history of nicotine dependence; Z86.16 Personal history of COVID-19
CPT/HCPCS: 45378; J2250

== ENCOUNTER 2023-08-02 09:07 | Outpatient (REF) | payer OTHER, SELFPAY ==
--- NOTE | ~2023-08-02 | XR_ITS ---
EXAMINATION: XR LUMBOSACRAL SPINE BENDING FILMS ONLY CLINICAL INFORMATION: Lumbosacral spondylolisthesis. COMPARISON: None available. TECHNIQUE: Lateral (neutral, flexion and extension) views of the lumbosacral spine are submitted. FINDINGS: Vertebral body heights are normal. At L5-S1, there is a 6 mm anterolisthesis. No instability is seen with flexion or extension. There is no acute fracture or spondylolisthesis. The posterior elements are intact. There is facet arthropathy at L4-L5 and L5-S1. There are upper abdominal surgical clips. XR/XR lumbar spine bending only IMPRESSION: 1. At L5-S1, there is a 6 cm anterolisthesis, which is stable with flexion or extension. 2. There is facet arthropathy at L4-L5 and L5-S1.
== END 2023-08-02 09:08 | disposition home or self-care (01) ==
LOC: HO.XRAY 09:07
PROVIDERS: PCP Internal Medicine; Visit Provider Anesthesiology
DX: M43.17 Spondylolisthesis, lumbosacral region (principal); M79.18 Myalgia, other site; M51.36 Other intervertebral disc degeneration, lumbar region
CPT/HCPCS: 72120; 99212

== ENCOUNTER 2023-08-02 09:07 | Outpatient (AMB) | payer OTHER, SELFPAY ==
--- NOTE | 2023-08-02 09:12 | MHC.OFFVIS ---
Intake Vital Signs 08/02/23 09:16 Height 5 ft Weight 118 lb 4 oz BMI 23.1 BP 138/72 Blood Pressure Location Lt brachial Position Sitting Respiration 14 Pulse 64 Pulse Source Pulse Oximeter Pulse Oximetry (%) 100 Oxygen Delivery Method Room Air Intake Visit Reasons: Follow up Intake Note: Patient comes in for follow up appointment. Reports pain 9/10. Allergies aspirin Allergy (Intermediate, Verified 08/02/23 09:16) Abdominal Pain Compazine Allergy (Severe, Uncoded 03/25/23 11:19) Anaphylaxis HPI HPI Comments History of Present Illness Details One there is very pleasant 58 years old female who is in my office after a long period of absence. In 2020 she was under my observation for radiculopathy of the lower lumbar spine with radiation into the right lower extremity all the way to her toes. Attempt to perform therapeutic L5-S1 transforaminal epidural steroid injection as well as attempt to perform interlaminar L5-S1 epidural steroid injection failed because the procedure was very difficult. The advancement of the needle met with bone formation on transforaminal approach and interlaminar approach was also unsuccessful because of the very small intervertebral interval. I after that send her for physical therapy and ordered her NSAIDs, she was very eager to start physical therapy, she continued home exercise program and her pain for a while got better. However now she reports that her employment duties require to be more physically active and her pain returned. She went for the MRI in May of 2023 and results of the MRI dictated as below. I offered her today to perform caudal epidural steroid injection with catheter. The patient agreed to go for the procedure. On the MRI she is also diagnosed with 5 mm L5-S1 anterolisthesis. In itself 5 mm maybe not significant number however flexion and extension x-rays forward and backward might aggravate this number and then it could be dangerous. We agreed that I will send her for the x-ray of the lumbar spine with bending. PFSH Medical History (Updated 08/02/23 @ 09:45 by Hill High MD) COVID-19 Anxiety HLD (hyperlipidemia) Cervicalgia Disc degeneration, lumbar Myofascial pain syndrome Back pain Depression Surgical History (Updated 03/25/23 @ 11:19 by Yusra Craig) Hx of colonoscopy H/O: hysterectomy Social History (System 03/25/23 @ 11:19 by Yusra A Rafa) Patient Tobacco Use Status: Former Tobacco user Review of Systems Const Denies excessive sweating and Denies fatigue Eyes Denies change in vision Card Denies chest pain at rest, Denies chest pain with activity, Denies diaphoresis, Denies syncope, Denies rapid heart rate and Denies pedal edema Resp Denies chest congestion, Denies cough, Denies hemoptysis, Denies pain on inspiration and Denies pain with cough GI Denies abdominal pain, Denies belching, Denies melena and Denies bloating Denies urinary incontinence Musc Reports as per HPI Neuro Denies confusion, Denies syncope, Denies memory loss and Denies seizure-like activity Psych Denies confusion, Denies irritability, Denies anhedonia, Denies memory loss, Denies visual hallucinations, Denies hallucinations, Denies tactile hallucinations, Denies homicidal ideation and Denies suicidal ideation Endo Denies excessive sweating and Denies fatigue Physical Exam Vital Signs: Last Vital Signs Pulse 64 08/02/23 09:16 Resp 14 08/02/23 09:16 BP 138/72 08/02/23 09:16 Pulse Ox 100 08/02/23 09:16 Oxygen Delivery Method Room Air 08/02/23 09:16 BMI result Body Mass Index 23.1 Const General: No confusion Orientation/consciousness: No confusion Eyes Pupils: Equal, round and reactive pupils present EOM: EOMs intact bilaterally Neck Neck: No full ROM (Limited range of motion in the neck.) Chest Chest palpation & inspection: normal inspection of the chest Resp Effort & Inspection: normal respiratory effort, able to speak in complete sentences, normal respiratory pattern, no audible wheezes and no cough Cardio Jugular venous distension: no JVD Back/Spine/Pelvis Other: tenderness on palpation in right-sided flank and chest,. Pain aggravation with deep breath.: no swelling or deformity, full ROM b/l hips, knees, ankles, with results with lumbar spine motions. SLR on the right results in significant pain aggravation,Lassegue test is also aggravate pain to stronger extend on the right. Neuro General: No confusion Cranial nerves: Yes Equal, round and reactive pupils present Psych Speech and movement: Normal speech and movement present Affect: normal affect Attitude: cooperative Results Reviewed Results Reviewed: MRI lumbar spine RAyus. 06/02/2023. Findings: Vertebral heights are well-maintained. Bone marrow signal is within normal limits. No suspicious osseous lesions are identified. Conus medullaris is unremarkable. Paraspinal soft tissues and visualized portion of the abdomen and pelvis are unremarkable. At L1-L2, L2-L3, L3-L4 there is no significant disc herniation or protrusion. No central canal or neural foraminal stenosis is demonstrated. At L4-5 there is no significant disc herniation or protrusion. No central canal or neural foraminal stenosis is demonstrated. There is loss of normal T2 hyperintense disc signal. There is a mild broad-based disc bulge and ligamentum flavum hypertrophy with mild uncovertebral hypertrophy. L5-S1 5 mm anterolisthesis. Diffuse loss of normal T2 hyperintense signal. Broad-based disc bulge with ligamentum flavum and uncovertebral hypertrophy without clinically significant central canal stenosis. There is lateral disc bulging worse on the right than on the left encroaching upon the right exiting L5 nerve root. This was worsened in the interval. Assessment & Plan Assessment & Plan (1) Spondylolisthesis at L5-S1 level: Code(s): M43.17 - Spondylolisthesis, lumbosacral region (2) Myofascial pain syndrome: Code(s): M79.18 - Myalgia, other site (3) Disc degeneration, lumbar: Code(s): M51.36 - Other intervertebral disc degeneration, lumbar region Plan MRI dictation is as above. I will schedule this patient for caudal ROSINA with catheter. Transforaminal and interlaminar L5-S1 were extremely difficult. Also will schedule this patient for x-ray lumbar spine with bending to evaluate anterolisthesis. I will see this patient after the injection. Orders: Orders XR lumbar spine bending only Today M43.17 - Spondylolisthesis, lumbosacral region Coding Level of Care Code Est Pt Level 4 (07240) Diagnoses Spondylolisthesis at L5-S1 level M43.17 Myofascial pain syndrome M79.18 Disc degeneration, lumbar M51.36
[2023-08-02 09:16] VITALS: BP 138/72; PULSE 64; RESP 14; O2SAT 100; BMI 23.1
== END 2023-08-02 09:46 | disposition home or self-care (01) ==
PROVIDERS: PCP Internal Medicine; Visit Provider Anesthesiology
DX: M43.17 Spondylolisthesis, lumbosacral region (principal); M79.18 Myalgia, other site; M51.36 Other intervertebral disc degeneration, lumbar region
CPT/HCPCS: 99214

== ENCOUNTER 2023-10-18 08:59 | Outpatient (AMB) | payer OTHER, SELFPAY ==
--- NOTE | 2023-10-18 09:02 | A.SPINEOV_ITS ---
Intake Visit Reasons: sciatica Intake Note: Ms. Sandoval is here today c/o low back sciatica pain. [employer] Required: No Allergies aspirin Allergy (Intermediate, Verified 08/02/23 09:16) Abdominal Pain Compazine Allergy (Severe, Uncoded 03/25/23 11:19) Anaphylaxis Assessment & Plan Assessment & Plan (1) Spondylolisthesis at L5-S1 level: Code(s): M43.17 - Spondylolisthesis, lumbosacral region Category: Medical Plan Dear Dr High, Thank you for referring Mrs Lori Grant to our office today. She is a very nice 58-year-old female who has been having radiculopathy in her legs since about December last year. She tells me that it started rather gradually but got significantly worse sometime last fall. It originally was just in the right leg was then transitioned to being both legs. She currently feels like the left side might be worse now. She sought out a conservative treatment in the form of physical therapy, pharmacist critical care. There was a component of back pain but the chiropractor seem to have fixed that. She tells me that at this point is really just radiculopathy down the legs that is bothering her. It is aggravated with standing walking and better when she sits. However she sits for too long she has to get up and move around. 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 Again she uses ibuprofen and Tylenol. An attempt was made to do cortisone injections to the L5 nerve in the foramen but this was met with bony resistance according to the notes and had to be aborted. A 2nd caudal block is going to be attempted but the patient tells me that they are waiting on insurance approval. She was sent to see us today for evaluation with MRI and x-ray showing spondylolisthesis at L5-S1. PMH: She is reasonably healthy, history of high cholesterol, depression/an xiety, hysterectomy, ovarian cyst removal, ganglion cyst removed from her wrist. Social hx: She does not smoke, drink or use any recreational drugs Medications: Citalopram, duloxetine, loratadine, Tylenol, and she takes vitamin supplements Allergies: Aspirin gives her stomach upset and Compazine made her short of breath Physical exam: She has an antalgic gait appears uncomfortable just walking down the hallway. Her strength is normal with the exception of some mild left dorsiflexion weakness. Reflexes are 3+ and symmetric. Imaging review: There is a lumbar MRI done at [facility] in May of 2023 as well as x-rays done at [facility]. This shows a grade 1 spondylolisthesis at L5-S1. She has relatively good disc height at this level. There is bilateral foraminal stenosis. I would rate it as moderate. In the upright and flexion-extension positions I do not see any overt instability but the spondylolisthesis may get slightly worse in the upright position. There is some very mild degeneration at L4-5. Impression: 58-year-old female presents to the office today for evaluation bilateral lower extremity pain, left greater than right with standing walking, better when she sits. The pain is described as going down into her posterolateral thighs into her calf and into her feet. She does not have any back pain to report. 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 She is tried conservative treatment as outlined above but her quality of life is suffering significantly. Her MRI shows a spondylolisthesis grade 1 at L5-S1, it may become slightly more exaggerated with standing but does not show any signs of instability. She overall has very only mild disc degeneration and height loss at this level. There is some nuance to her surgical situation in that typically in a situation where there is a spondylolisthesis and bilateral foraminal stenosis the temptation is to go right to fusion surgery. However, compared to our typical patient's, her disc height is not severely collapsed and she has no back pain. This may back the question that it may be optimum just to do a bilateral L5 foraminotomy and treat her leg pain. It would also make a significantly shorter recovery for her and she is the sole provider of income for her household. It concerns her that if she ended up needing a fusion that she would have to take 2-3 months off. It may not be realistic for her. I will review her imaging with Dr. Olson and get back to the patient with a final plan. Thank you for allowing us to care for your patient. The total time spent with this visit with this patient was 45 minutes reviewing history, physical exam, lumbar imaging review, and implementation of treatment plan or further diagnostic testing Teodoro Olson MD,PhD [facility] Coding Level of Care Code New Pt Level 4 (42893) Diagnoses Spondylolisthesis at L5-S1 level M43.17
== END 2023-10-18 11:49 | disposition home or self-care (01) ==
PROVIDERS: PCP Internal Medicine; Visit Provider Physician Assistant
DX: M43.17 Spondylolisthesis, lumbosacral region (principal)
CPT/HCPCS: 99204

== ENCOUNTER → 2023-10-18 08:59 | Outpatient (BNVA) | payer OTHER, SELFPAY | PROVIDERS: PCP Internal Medicine; Visit Provider Physician Assistant | DX: M43.17 Spondylolisthesis, lumbosacral region (principal) | CPT/HCPCS: 99202 ==

== ENCOUNTER 2023-10-22 07:00 | Outpatient (RCR) | payer OTHER, SELFPAY ==
--- NOTE | 2023-09-14 13:07 | MHC.OT.OEV ---
[address] [phone] F: [phone] Occupational Therapy Evaluation Patient Name: Chanel Grant Diagnosis: (R) Medial Epicondylitis Date of Onset: 04/07/24 Date of Surgery: Attending Provider: Claudette Pineda Prescribed Treatment: Follow Up Appointment: History of Current Condition: Patient is a 58 year old, right hand dominate female who presents with pain of the (R)elbow. She was referred by Claudette Pineda MD with a dx of (R)medial epicondylitis. She reported symptoms began approximately 6 months ago. She has noticed at times edema is present and will occasionally have tingling from the medial elbow to the lateral side of the forearm. Her main goal is to have the pain decrease and not return. 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 (I)ADLs/IADLs enjoys working out and yoga Living Situation, Family and/or Social Support: Lives with 19 year old son Current Level of Function and Occupation Self Care, Employment, Leisure: 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 Alleviating Factors: Tylenol, heat and ice Skin and Soft Tissue Assessment Skin and Soft Tissue: Comments: Skin intact Nerve assessment Ulnar Nerve: Right Impaired Median Nerve: Radial Nerve: Comments: Sensory Assessment Temperature: Light Touch: Proprioception: Vibration: Comments: [place] monofilament test= WFL Edema Assessment Upper Extremity: WNL Lower Extremity: Comments: No edema present Dexterity Assessment Dexterity: Comments: Finger opposition= WFL Functional Dexterity Test= WFL (R)25.85 seconds, (L)23.55 seconds Special Tests Comments: Tinel's Test (+) Medial epicondyle test (+) AROM(PROM) Strength Cervical Cervical Flexion: Cervical Extension: Cervical Lateral Flexion: Cervical Rotation: Comments: Shoulder Flexion: Extension: Abduction: Internal Rotation: External Rotation: Comments: WFL Flexion: Extension: Abduction: Internal Rotation: External Rotation: Comments: 4+/5 grossly Elbow Flexion: Extension: Pronation: Supination: Comments: WFL Flexion: Extension: Pronation: Supination: Comments: 4-/5 grossly Wrist Flexion: Extension: Ulnar Deviation: Radial Deviation: Comments: WFL Flexion: Extension: Ulnar Deviation: Radial Deviation: Comments: 3+/5 grossly Thumb Thumb CMC Flexion: Thumb MCP Flexion: Thumb IP Flexion: Radial Abduction: Palmar Abduction: [place] ([place] 0-10): Comments: WFL Digits Index MCP: PIP: DIP: Long MCP: PIP: DIP: Ring MCP: PIP: DIP: Small MCP: PIP: DIP: Comments: WFL Gross Grasp: (R)31.3lbs. (L)43.6lbs. Lateral Pinch: 15 Two-Point Pinch: 3 Three-Jaw Simon: 8 Comments: Patient Education Primary Language: Epoxy Fabrication Supervisor Required: Current Knowledge: Teaching Method: Education Needs Identified on Evaluation: How did patient/family demonstrate learning? Barriers to Learning: Readiness for Learning: Who was educated? Comments: Plan of Care Assessment: Patient is 58 y/o female who was referred to skilled OT for (R)Medial Epicondylitis. She reports pain of the elbow, tingling and at times edema. 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 She lives with 19 y/o son, in an apartment on the 3rd floor. She enjoys (yoga) but has stopped because of the pain in the elbow. Proactive Testing was (+) for medial epicondylitis . She reports 7/10 pain at rest and 9/10 during activity with occasional tingling. She achieved 31.3lbs. for urgent care physician strength which is under for patient's age and gender. Her current (R)UE ROM is WFLs. Functional Dexterity Test revealed her coordination is intact. Quick DASH= 52.3% indicating patient's perceived impairment of the UE. Based on the initial evaluation patient's CLOF is min (A)IADL tasks as patient presents with impaired strength, pain and impaired performance during self care tasks. Due to the documented impairments it is recommended that patient receive skilled OT in order for patient to achieve her PLOF of (I) during self care tasks and to perform her work duties pain free. Thank you for your referral. STG Duration: 2 weeks Short Term Goals: Patient will report pain from 9/10 to 6/10 pain in (R) elbow Patient will increase urgent care physician strength to 37lbs. for improved performance during self care tasks Patient will be (I) with pain management strategies Patient will be (I) with edema management strategies LTG Duration: 4 weeks Alf Goals: Patient will report 0/10 pain in (R)elbow Patient will be (I) with HEP Patient will have an improved Quick DASH score that is >30% Frequency and Duration: The patient will be seen 2x a week for 4 weeks Treatment Plan: Therapeutic Exercise Therapeutic Activity Home Exercise Program Splinting Patient Education Edema Control ADL Training Ultrasound Iontophoresis Fluidotherapy MHP Cold Packs Kinesiotaping Skilled OT evaluation and treat 2x a week for 4 weeks Electronically Signed By: CRIS Benito/Ayla, CLT Reviewed/agree with student documentation: Therapist: Please sign and return to therapist, Thank you for your referral.
--- NOTE | 2023-10-18 14:58 | MHC.OT.OP ---
[address] [phone] F: [phone] Occupational Therapy Progress Note Patient Name: Chanel Grant Diagnosis: (R) Medial Epicondylitis Date of Evaluation: 09/13/23 Treatments to Date: 8 Cancellations to Date: 1 No Shows to Date: 0 Subjective: I SEE THE DOCTOR ON WEDNESDAY THE 16 Pain Score: 5 Pain Location: (R)MEDIAL ELBOW Objective Measures: R GRASP 35 POUNDS (WITHOUT CFB - FORGOT AT HOME) ON 10/18/23 PREVIOUSLY 42 POUNDS WITH CFB ON 10/04/23 INITIAL EVAL 31 POUNDS 09/13/23 Status: Progressing Assessment: Pt HAS HAD SIX TREATMENTS OF DEX VIA IONTO TO R MEDIAL ELBOW. SHE REPORTS IMPROVEMENTS IN PAIN AND FUNCTIONAL ABILITIES. SHE IS WEARING HER CFB DURING WORK RELATED TASKS. Pt PROGRESSING WITH STRETCHING AND ECCENTRIC EXERCISES. RELIEF IS FOUND WITH USE OF ROCK TAPE. 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 for improved performance during self care tasks MET Patient will be (I) with pain management strategies MET Patient will be (I) with edema management strategies MET Care Home Goals: Patient will report 0/10 pain in (R)elbow Patient will be (I) with HEP Patient will have an improved Quick DASH score that is <30% Frequency and Duration: The patient will be seen 2X/WEEK FOR 2 WEEKS Treatment Plan: Therapeutic Exercise Therapeutic Activity Home Exercise Program Splinting Neuro Re-ed Patient Education Desensitization/Sensory Re-ed Edema Control ADL Training Ultrasound NMES Iontophoresis Paraffin Fluidotherapy MHP Cold Packs Joint Mobilization Soft Tissue Mobilization Kinesiotaping Other (see comments) Skilled OT evaluation and treat 2x a week for 4 weeks Electronically Signed By: MINDY SALEEM OTR/Ayla Reviewed/agree with student documentation: N/A Therapist:
--- NOTE | 2023-11-09 14:31 | MHC.OT.DC ---
[address] [phone] F: [phone] Occupational Therapy Discharge Note Patient Name: Chanel Grant Provider: Dr Claudette Pineda Diagnosis: (R) Medial Epicondylitis Date of Evaluation: 09/13/23 Date of Discharge: 11/09/23 Treatments to Date: 9 Cancellations to Date: 1 No Shows to Date: 0 Discharge Status: Independent with HEP Patient Elected to Stop Discharge Summary: Chanel was referred to OT with right medial elbow pain. She has progressed through course and therapy and has reported decreased pain overall, still participating in aggravating tasks. However, at this time she has self-discharged and states she will be focusing on other issues issues (sciatica, etc). She has been given HEP and education for self management. Electronically Signed By: CRIS Jerez/Ayla TAYLOR Reviewed/agree with student documentation: N/A Therapist: Please Sign and return to therapist, thank you for your referral.
== END 2023-11-09 14:32 | disposition home or self-care (01) ==
LOC: HO.OT 07:00
PROVIDERS: PCP Internal Medicine; Visit Provider Internal Medicine
DX: M77.01 Medial epicondylitis, right elbow (principal)
CPT/HCPCS: 97033; 97110; 97140; 97165

== ENCOUNTER 2023-11-10 05:48 | Emergency (ER) | payer OTHER, SELFPAY ==
--- NOTE | ~2023-11-10 | XR_ITS ---
EXAMINATION: XR LUMBOSACRAL SPINE CLINICAL INFORMATION: Back pain worsening pain COMPARISON: 08/02/2023 TECHNIQUE: Three views of the lumbosacral spine. FINDINGS: When compared to the previous study there is no significant interval change in the approximately 5 mm anterior listhesis of L5 over S1. There is straightening of lumbar lordosis. The rest of vertebral bodies are well aligned and intervertebral discs are preserved. Pedicles are intact. Sacroiliac joints unremarkable. XR/XR lumbar spine 2-3V IMPRESSION: Stable grade 1 anterior listhesis of L5 over S1 and muscle spasm with straightening of lumbar lordosis
[2023-11-10 05:57] VITALS: BP 171/104; PULSE 81; O2SAT 100
[2023-11-10 06:00] VITALS: BP 148/76; PULSE 85; RESP 20; TEMP 36.9; O2SAT 100; BMI 23.8
[2023-11-10 07:15] VITALS: BP 137/77; PULSE 69; RESP 16; TEMP 37; O2SAT 98
[2023-11-10] MEDS: Cyclobenzaprine HCl 10 MG TABLET PO (07:16)
--- NOTE | 2023-11-10 07:17 | ED.BACK ---
HPI - Back Pain/Injury General Chief Complaint: Back Pain/Injury Stated Complaint: left leg pain hx sciatica Time Seen by Provider: 11/10/23 06:31 Source: patient Mode of arrival: EMS Limitations: no limitations History of Present Illness ED Provider: Diego Clinton PA-C HPI Narrative: 58 year old female with history of sciatica and arthritis presenting for evaluation of acute worsening of low back pain. She has a longstanding history of bilateral sciatica, L worse than R, dx with L5-S1 spondylolisthesis, is scheduled for spine surgery on 01/[address] Olson. This morning she bent over to leaf size picker a broken heating pad of the couch and felt like something 'broke' in her low back causing severe sharp pain down her left leg, crawled to phone to call 911. EMS administered IV toradol with minimal relief. This pain is in the same distribution and has the same associated numbness as her chronic pain, but is worse in severity. She states that her back pain has been worsening more recently, began filling out FMLA paperwork about 1wk ago. She has been taking oxycodone 5mg and diclofenac, also sees chiropractor. Denies bowel or bladder dysfunction. MD elicited complaint: back pain and back injury Pertinent past history: prior back pain Onset (ago): hour(s) Timing: constant Severity: severe Similar Symptoms Previously: Yes Quality: sharp Location: left lower back Radiation: left leg below the knee Exacerbating factors: movement, walking and lifting Context: bending Associated symptoms: denies other symptoms Treatments prior to arrival: NSAIDS Work related injury: No Related Data Home Medications ?Medication ?Instructions ?Recorded ?Confirmed acetaminophen 325 mg tablet 325 mg PO QID PRN Pain 04/01/20 11/11/20 (Tylenol) buspirone 10 mg tablet 10 mg PO BID 04/01/20 11/11/20 citalopram 20 mg tablet (Celexa) 20 mg PO DAILY 04/01/20 11/11/20 loratadine 10 mg tablet 10 mg PO DAILY 04/01/20 11/11/20 omega-3 fatty acids 1,000 mg PO DAILY 04/01/20 11/11/20 baclofen 20 mg tablet 20 mg PO BEDTIME 04/05/20 11/11/20 duloxetine 30 mg capsule,delayed 30 mg PO DAILY 03/12/21 release Previous Rx's ?Medication ?Instructions ?Recorded cyclobenzaprine 10 mg tablet 10 mg PO BID PRN muscle spasm #10 11/10/23 tabs lidocaine 5 % topical patch 1 patch topical DAILY #15 ea 11/10/23 Allergies Allergy/AdvReac Type Severity Reaction Status Date / Time aspirin Allergy Intermediate Abdominal Verified 11/10/23 06:03 Pain Compazine Allergy Severe Anaphylaxis Uncoded 11/10/23 06:03 Review of Systems Review of Systems: Yes all other systems are reviewed and are negative COUNTS INCLUDE 234 BEDS AT THE [facility] Past Medical History Medical History (Updated 11/10/23 @ 10:15 by TAMI Mane) COVID-19 Anxiety HLD (hyperlipidemia) Cervicalgia Disc degeneration, lumbar Myofascial pain syndrome Back pain Depression Surgical History (Updated 03/25/23 @ 11:19 by Yusra Craig) Hx of colonoscopy H/O: hysterectomy Social History Social History (System 03/25/23 @ 11:19 by Yusra Craig) Patient Tobacco Use Status: Former Tobacco user Smoked in Last 30 Days: No Use of substances other than those prescribed or required for medical reasons: No Advance Directives: No Advance Directives Information Provided: Yes Physical Exam Vital Signs: Vital Signs: Last Vital Signs Temp 98.0 F 11/10/23 10:23 Pulse 66 11/10/23 10:23 Resp 18 11/10/23 10:23 BP 125/71 11/10/23 10:23 Pulse Ox 97 11/10/23 10:23 O2 Del Method Room Air 11/10/23 10:23 BMI result Body Mass Index 23.8 Appearance: Alert. Oriented X3. Tearful d/t pain. Head: normocephalic, atraumatic. Neck: Normal inspection. Neck supple. CVS: Normal heart rate and rhythm. Pulses normal. Respiratory: No respiratory distress. Breath sounds normal. Skin: Skin warm and dry. Normal skin color. No rashes. MSK: Spine exam limited by pain. RLE sensation intact to light touch, 5/5 strength in iliopsoas, ant tibialis, gastroc. LLE sensation slightly diminished along length of entire leg (chronic numbness), 4-/5 strength in iliopsoas, ant tibialis, gastroc. Extremities: No lower extremity edema. No joint swelling. Neuro/psych: Oriented X 3. No motor deficit. No sensory deficit. CN II-XII intact. Normal speech and cognition. Medications Administered Discontinued Medications Generic Name Dose Route Start Last Admin Trade Name Dontrell PRN Reason Stop Dose Admin Cyclobenzaprine HCl 10 mg 11/10/23 07:07 11/10/23 07:16 Cyclobenzaprine Hcl 10 Mg Tablet PO 11/10/23 07:08 10 mg ONCE ONE Administration Oxycodone HCl 10 mg 11/10/23 07:07 11/10/23 07:27 Oxycodone Hcl Immed Release 5 Mg Tablet PO 11/10/23 07:08 10 mg ONCE ONE Administration Medical Decision Making Medical Decision Making MDM Narrative: 58 year old female with history of sciatica and arthritis presenting for evaluation of acute worsening of low back pain. She has a longstanding history of bilateral sciatica, L worse than R, dx with L5-S1 spondylolisthesis, is scheduled for spine surgery on 01/[address] Olson. She had an acute worsening of her chronic pain d/t injury while bending forward. Denies bowel and bladder dysfunction therefore suspicion for cauda equina syndrome is low. Distribution of the acute pain is the same as her chronic pain, therefore this may be an aggravation of her sciatica triggered by bending. Xray obtained to evaluate for change compared to previous or disc space narrowing. XR finding were stable w/ straightening of lumbar lordosis c/w muscle spasm pain improved w/ treatment here - will send home with short course of flexeril and have her f/u with PCP and Dr. Olson. stable for d/c home Differential Diagnosis Differential Diagnoses: The differential diagnosis associated with the presentation includes cauda equina syndrome, sciatica, herniated disc, low back muscular strain Independent Interpretation I performed an independent interpretation of an: Plain X-Ray Interpretation: no appreciated fx, agree w/ radiology read Radiology Impression Discussion of test interpretation with radiology: I have reviewed the radiologist's reading. Radiologist Impression: XR/XR lumbar spine 2-3V IMPRESSION: Stable grade 1 anterior listhesis of L5 over S1 and muscle spasm with straightening of lumbar lordosis Independent Historian Clinical information obtained from an independent historian. History obtained from or confirmed by: EMS External Record Review External record reviewed: Office record, Outpatient record, Prior outpatient labs and Prior outpatient radiology Tests considered The following testing was considered but not selected: CT scan lumbar spine considered, low suspicion for central cord compression Prescription Management I considered prescription management with: Pain Medication Chronic Conditions Patient?s care impacted by: Other (chronic low back pain) Critical Care Time Critical Care Time Critical Care Time: No Discharge Plan Discharge Clinical Impression: Spondylolisthesis at L5-S1 level Strain of lumbar region Qualifiers: Encounter type: initial encounter Qualified Code(s): S39.012A - Strain of muscle, fascia and tendon of lower back, initial encounter Patient Disposition: Home, Self-Care Instructions: Low Back Strain (ED), Lower Back Exercises (ED) Additional Instructions: Your x-ray showed stable findings along w/ muscle spasm Your pain is most likely due to muscle strain and spasm. No bending, lifting or twisting. Use ice several times per day for 20 minutes at a time for the next 48 hours and then change to heat. Take medications as prescribed to help with pain and discomfort. Follow up with your Primary Care Doctor & your personal computer specialist. If your pain worsens, if you develop new numbness, tingling, weakness, loss of function or incontinence call 911 or come back to the ER right away for evaluation. Prescriptions: New cyclobenzaprine 10 mg tablet 10 mg PO BID PRN (Reason: muscle spasm) Qty: 10 0RF lidocaine 5 % adhesive patch,medicated 1 patch topical DAILY Qty: 15 0RF Rx Instructions: leave on most painful area for up to 12 hrs No Action acetaminophen [Tylenol] 325 mg Tablet 325 mg PO QID PRN (Reason: Pain) citalopram [Celexa] 20 mg Tablet 20 mg PO DAILY buspirone 10 mg Tablet 10 mg PO BID loratadine 10 mg Tablet 10 mg PO DAILY [place] 3 Fish Oil Concentrate Capsule 1,000 mg PO DAILY baclofen 20 mg Tablet 20 mg PO BEDTIME duloxetine 30 mg capsule,delayed release(DR/EC) 30 mg PO DAILY Referrals: Claudette Pineda MD [Primary Care Provider] - Maxi Olson MD, PhD [Physician] - Interventions: ED Discharge Assessment Last Done: 11/10/23 10:23 Print Language: Faroese
[2023-11-10] MEDS: oxyCODONE HCl Immed Release 5 MG TABLET 10 MG PO (07:27)
--- NOTE | 2023-11-10 08:41 | PC.NURSE ---
awake and alert. room air, resp even and unlabored. speaking in full clear sentences. abd soft. skin wcd. given PO meds per orders. pt resting comfortably in bed at this time.
[2023-11-10 09:36] VITALS: BP 125/71; PULSE 66; RESP 18; TEMP 36.7; O2SAT 97
[2023-11-10 10:23] VITALS: BP 125/71; PULSE 66; RESP 18; TEMP 36.7; O2SAT 97
== END 2023-11-10 11:20 | disposition home or self-care (01) ==
PROVIDERS: Emergency Provider Emergency Medicine; PCP Internal Medicine
DX: S39.012A Strain of muscle, fascia and tendon of lower back, initial encounter (principal); X50.9XXA Other and unspecified overexertion or strenuous movements or postures, initial encounter; Y93.89 Activity, other specified; Y92.009 Unspecified place in unspecified non-institutional (private) residence as the place of occurrence of the external cause; Y99.9 Unspecified external cause status
CPT/HCPCS: 72100; 99283; 99284

== ENCOUNTER → 2023-12-01 12:52 | Outpatient (BNV) | payer OTHER, SELFPAY | PROVIDERS: PCP Internal Medicine; Visit Provider Internal Medicine Cardiovascular Disease | DX: R94.31 Abnormal electrocardiogram [ECG] [EKG] (principal) | CPT/HCPCS: 93010 ==

== ENCOUNTER 2023-12-08 08:34 | Outpatient (AMB) | payer OTHER, SELFPAY ==
--- NOTE | 2023-12-08 08:46 | MHC.OFFVIS ---
Vital Signs 12/08/23 09:01 Height 4 ft 11 in Weight 115 lb BMI 23.2 BP 163/92 H Blood Pressure Location Rt brachial Position Sitting Pulse 83 Intake Visit Reasons: Bleeding hemorrhoids Intake Note: Patient referred by pcp Dr. Pineda for bleeding hemorrhoids. Patient c/o: blood after BM and when wiping. Anusol cr not approved by insurance. Using Tucks hemorrhoidal cream that helps. Colonoscopy at [facility] in 2022. 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 Aside from an episode during COVID when she was taking COVID medication, she has had no other prior episodes of this. The patient had colonoscopy approximate year ago at [facility]. We are trying to obtain those results. Patient does have history of constipation in his had hard stool. She denies any anal receptive practice. No change in caliber of the stool. Chart was reviewed and patient evaluated patient is tentatively scheduled for back surgery and a proximally 2 weeks time. [facility] Medical History Arthritis Gestational diabetes Migraine Clenching of teeth Snores COVID-19 Anxiety HLD (hyperlipidemia) Cervicalgia Disc degeneration, lumbar Back pain Depression Surgical History Hx of ovarian cystectomy Hx of excision of mass Hx of colonoscopy H/O: hysterectomy Social History Household Members Other:: son Are you a primary career placement services counselor to a significant other at home: No Do you presently have visiting nurse or other home services: No Patient Tobacco Use Status: Former Tobacco user Tobacco use type: Cigarette Years Smoked: 14 Physical Exam Vital Signs: Last Vital Signs Pulse 83 12/08/23 09:01 BP 163/92 H 12/08/23 09:01 BMI result Body Mass Index 23.2 GI Other: Abdomen is soft, benign. Rectal exam demonstrates moderately sized internal external hemorrhoids and a small posterior anal fissure. Rectal exam was deferred secondary to patient's discomfort Assessment & Plan Assessment & Plan (1) Hemorrhoids: Code(s): K64.9 - Unspecified hemorrhoids Category: Medical (2) Anal fissure: Code(s): K60.2 - Anal fissure, unspecified Category: Medical Plan Patient has been strongly encouraged to keep her stool soft. Suggestions include drinking lot of water, roughage, Metamucil or Citrucel, avoid prolonged sitting on the toilet. Patient will see me in a proximally 4 weeks time. The meantime, we will try to obtain her colonoscopic results. All questions answered. Coding Level of Care Code New Pt Level 4 (12765) Diagnoses Hemorrhoids K64.9 Anal fissure K60.2
[2023-12-08 09:01] VITALS: BP 163/92; PULSE 83; BMI 23.2
== END 2023-12-08 09:19 | disposition home or self-care (01) ==
PROVIDERS: PCP Internal Medicine; Referring Provider Internal Medicine; Visit Provider Surgery
DX: K64.9 Unspecified hemorrhoids (principal); K60.2 Anal fissure, unspecified
CPT/HCPCS: 99203

== ENCOUNTER → 2023-12-08 08:34 | Outpatient (BNVA) | payer OTHER, SELFPAY | PROVIDERS: PCP Internal Medicine; Referring Provider Internal Medicine; Visit Provider Surgery | DX: K64.9 Unspecified hemorrhoids (principal); K60.2 Anal fissure, unspecified | CPT/HCPCS: 99202 ==

== ENCOUNTER 2023-12-23 09:53 | Day surgery (SDC) | payer OTHER, SELFPAY ==
--- NOTE | 2023-12-01 | ECG_ITS ---
Test Reason : preop Blood Pressure : / mmHG Vent. Rate : 069 BPM Atrial Rate : 069 BPM P-R Int : 172 ms QRS Dur : 074 ms QT Int : 366 ms P-R-T Axes : 056 029 051 degrees QTc Int : 392 ms Normal sinus rhythm with sinus arrhythmia Nonspecific ST abnormality Abnormal ECG No previous ECGs available Referred By: Shruti Lezama Electronically Signed By:YUE CRAIG MD
[2023-12-01 12:14] VITALS: BMI 22.3
[2023-12-01 12:23] VITALS: BP 135/84; PULSE 77; RESP 18; O2SAT 99
[2023-12-01 13:31] LABS: Hematocrit 40.1 % (37.0-47.0); Hemoglobin 13.4 g/dl (12.0-16.0); Mean Corpuscular HGB Conc 33.4 g/dl (31.0-35.0); Mean Corpuscular Hemoglobin 27.5 pg (27.0-33.0); Mean Corpuscular Volume 82.2 fL (80.0-98.0); Mean Platelet Volume 10.8 fL (9.4-12.3); Platelet Count 261 X10*3/uL (160-400); Red Blood Count 4.88 X10*6/uL (4.20-5.50); Red Cell Distribution Width 13.2 % (11.0-16.0); White Blood Count 7.8 X10*3/uL (4.8-10.8)
[2023-12-01 14:03] LABS: Anion Gap 13 (12-20); Blood Urea Nitrogen 9 mg/dL (9-16); Calcium 10.4 mg/dL (8.4-10.2); Carbon Dioxide 29 mmol/L (22-29); Chloride 102 mmol/L (96-108); Creatinine Clr Calc Pharmacy 68.3; Estimated Glomerular Filt Rate > 60; Glucose Random 95 mg/dL (60-115); Potassium 3.9 mmol/L (3.3-5.1); Sodium 140 mmol/L (135-145)
[2023-12-23] VITALS (12 sets, daily range): BP systolic 94–145; BP diastolic 44–87; PULSE 71–97; RESP 11–16; TEMP 36.3–37.2; O2SAT 94–100; BMI 22.7
--- NOTE | ~2023-12-23 | FL_ITS ---
EXAMINATION: XR FLUOROSCOPY WITH IMAGES CLINICAL INFORMATION: L5 foraminotomies. COMPARISON: None available. TECHNIQUE: Fluoroscopy Supervised By: Dr. Houston Olson Fluoroscopy Time: 0.1 minutes Cumulative Dose: 3.33 mGy-cm DAP: 0.9 Gy-cm2 Images: 2. FINDINGS: Intraoperative fluoroscopy and spot films were performed during a procedure in the OR. Imaging demonstrates probe at the lower end of the L5 vertebral body. Please correlate with Dr. Houston Olson' report for complete details. FL/FL guidance in OR IMPRESSION: Intraoperative fluoroscopy and spot films were obtained. Please see Dr. Houston Olson' report for complete details.
[2023-12-23] MEDS: methocarbamoL 750 MG TABLET PO (11:02)
[2023-12-23] MEDS: Lactated Ringers 1,000 ML 100 ML IVCONT (11:02)
[2023-12-23] MEDS: Gabapentin 300 MG CAPSULE PO (11:03)
--- NOTE | 2023-12-23 11:04 | MHC.SHP ---
Pre-Procedural Eval Section A - 24 Hr Update-Section A only Date of Service: 12/23/23 The patient is an INPATIENT: No Section B - Complete if H&P > 30 days Chief Complaint: Spondylolisthesis, lumbosacral region Details of Present Illness: Bilateral L5 radiculopathy in conjunction at L5-S1 spondylolisthesis Allergies: Allergies Allergy/AdvReac Type Severity Reaction Status Date / Time prochlorperazine Allergy Severe Anaphylaxis Verified 12/23/23 10:12 [From Compazine] aspirin Allergy Intermediate Abdominal Verified 12/23/23 10:12 Pain Penicillins Allergy Intermediate Headache Verified 12/23/23 10:12 Review of Systems Sugical H&P ROS: Negative: Constitution, Cardiovascular, Respiratory, Psychiatric, Hem-Onc, Allergic/Immunologic, Gastrointestinal, Genitourinary, Musculoskeletal, Integumentary, Endocrine and Eyes/Ears/Nose/Throat and Yes, Specify: Neurological (Mild footdrop bilaterally) Exam Surgical H&P Exam: Normal: HEENT, Normal: Heart, Normal: Lungs, Normal: Extremities, Normal: Abdomen and Normal: Skin and Significant Findings: Neurological (Mild foot drop bilaterally) Plan Diagnosis/Plan: Unchanged I have reviewed the history and physical and performed a pertinent physical examination on my patient. No changes have occurred unless specified. Bilateral L5 foraminotomy Time Spent With Patient Time: Total time managing care of this patient today ___5_ minutes.
[2023-12-23] MEDS: vancomycin HCL 1,000 MG in 0.9 % Sodium Chloride 250 ML 270 MG IV (11:51)
--- NOTE | 2023-12-23 12:25 | HO.ANESPROP2 ---
Documented by User: Shruti Lezama NP 12/02/23 08:53 HPI - Anesthesia Eval Consult details Narrative: 58yo F for Bilateral L5 Foraminotomies, 12/15/23 No recent illness No CP/SOB with minimal activity related to pain for ~ 1 year. Excersizing prior to that wihtout limitations PMFSH Active Problems Active Problems: All Active Problems Spondylolisthesis at L5-S1 level (Acute) Myofascial pain syndrome (Acute) Cervicalgia (Acute) Disc degeneration, lumbar (Acute) Past Medical History Medical History Arthritis Gestational diabetes Migraine Clenching of teeth Snores COVID-19 Anxiety HLD (hyperlipidemia) Cervicalgia Disc degeneration, lumbar Back pain Depression Family History Family history of problems with anesthesia: No Surgical History Surgical History Hx of ovarian cystectomy Hx of excision of mass Hx of colonoscopy H/O: hysterectomy History of Problems with Anesthesia: No Social History Social History Household Members Other:: son Are you a primary foster care therapist to a significant other at home: No Do you presently have visiting nurse or other home services: No Patient Tobacco Use Status: Former Tobacco user Tobacco use type: Cigarette Years Smoked: 14 Use of substances other than those prescribed or required for medical reasons: No Have you been hit, kicked, punched, or otherwise hurt by someone within the past year? If so, by whom?: No Are you DNR?: No Advance Directives: No (sister is primary contact) Advance Directives Information Provided: Yes (brochure given) Advance Directives on File: No Recently lost weight without trying: No Eating poorly because of decreased appetite: No Nutrition Risks: No Nutritional Risk FDLMP: N/A Poor oral hygiene: No (Invisalign dental aligners & uses mouth guard QHS for teeth clenching) Meds Allergies Allergy/AdvReac Type Severity Reaction Status Date / Time prochlorperazine Allergy Severe Anaphylaxis Verified 12/23/23 10:12 [From Compazine] aspirin Allergy Intermediate Abdominal Verified 12/23/23 10:12 Pain Penicillins Allergy Intermediate Headache Verified 12/23/23 10:12 Home Medications ?Medication ?Instructions ?Recorded ?Confirmed ?Last Taken ?Type acetaminophen 325 mg tablet 325 mg PO QID PRN Pain 04/01/20 12/23/23 Unknown History (Tylenol) loratadine 10 mg tablet 10 mg PO QAM 04/01/20 12/23/23 Unknown History omega-3 fatty acids 1,000 mg PO QAM 04/01/20 12/23/23 Unknown History lidocaine 5 % topical patch 1 patch topical QAM 12/01/23 12/23/23 Unknown History multivitamin 1 tab PO DAILY 12/01/23 12/23/23 Unknown History Exam Height,Weight and Vital Signs: Height 5 ft Weight 51.71 kg Last Vital Signs Pulse 77 12/01/23 12:23 Resp 18 12/01/23 12:23 BP 135/84 12/01/23 12:23 Pulse Ox 99 12/01/23 12:23 O2 Del Method Room Air 12/01/23 12:23 Pertinent Lab Results Pertinent Lab Results: Lab Results 12/01/23 Range/Units 12:59 WBC 7.8 (4.8-10.8) X10*3/uL RBC 4.88 (4.20-5.50) X10*6/uL Hgb 13.4 (12.0-16.0) g/dl Hct 40.1 (37.0-47.0) % MCV 82.2 (80.0-98.0) fL MCH 27.5 (27.0-33.0) pg MCHC 33.4 (31.0-35.0) g/dl RDW 13.2 (11.0-16.0) % Plt Count 261 D (160-400) X10*3/uL MPV 10.8 (9.4-12.3) fL Absolute Nucleated RBC 0.000 (0.0-0.012) X10*3/uL Nucleated RBC % (auto) 0.0 (0.0-0.2) /100WBC Sodium 140 (135-145) mmol/L Potassium 3.9 (3.3-5.1) mmol/L Chloride 102 (96-108) mmol/L Carbon Dioxide 29 (22-29) mmol/L Anion Gap 13 (12-20) BUN 9 (9-16) mg/dL Creatinine 0.66 (0.5-1.4) mg/dL Estim Creat Clear Calc 68.3 Estimated GFR > 60 Random Glucose 95 (60-115) mg/dL Calcium 10.4 H (8.4-10.2) mg/dL Narrative Narrative: EKG 11/2023 Vent. Rate : 069 BPM Atrial Rate : 069 BPM P-R Int : 172 ms QRS Dur : 074 ms QT Int : 366 ms P-R-T Axes : 056 029 051 degrees QTc Int : 392 ms Normal sinus rhythm with sinus arrhythmia Nonspecific ST abnormality Abnormal ECG No previous ECGs available Airway Mallampati Class: II TM Dist: >3cm Neck ROM: Full Loose/Missing/Broken Teeth: Yes (molars pulled. Invisalign (buttons on teeth)) Heart: RRR Lungs: CTAB Assessment and Plan Assessment Anesthesia Assessment: Anesthesia Plan Discussed and PAT Visit Final Anesthetic Review Family History of Problems with Anesthesia: No History of Problems with Anesthesia: No Documented by User: Jodi Pulliam DO 12/23/23 12:27 PMFSH Past Medical History Medical History Arthritis Gestational diabetes Migraine Clenching of teeth Snores COVID-19 Anxiety HLD (hyperlipidemia) Cervicalgia Disc degeneration, lumbar Back pain Depression Family History Family history of problems with anesthesia: No Surgical History Surgical History Hx of ovarian cystectomy Hx of excision of mass Hx of colonoscopy H/O: hysterectomy History of Problems with Anesthesia: No Social History Social History Household Members Other:: son Are you a primary foster care therapist to a significant other at home: No Do you presently have visiting nurse or other home services: No Patient Tobacco Use Status: Former Tobacco user Tobacco use type: Cigarette Years Smoked: 14 Use of substances other than those prescribed or required for medical reasons: No Have you been hit, kicked, punched, or otherwise hurt by someone within the past year? If so, by whom?: No Are you DNR?: No Advance Directives: No (sister is primary contact) Advance Directives Information Provided: Yes (brochure given) Advance Directives on File: No Recently lost weight without trying: No Eating poorly because of decreased appetite: No Nutrition Risks: No Nutritional Risk FDLMP: N/A Poor oral hygiene: No (Invisalign dental aligners & uses mouth guard QHS for teeth clenching) Meds Allergies Allergy/AdvReac Type Severity Reaction Status Date / Time prochlorperazine Allergy Severe Anaphylaxis Verified 12/23/23 10:12 [From Compazine] aspirin Allergy Intermediate Abdominal Verified 12/23/23 10:12 Pain Penicillins Allergy Intermediate Headache Verified 12/23/23 10:12 Home Medications ?Medication ?Instructions ?Recorded ?Confirmed ?Last Taken ?Type acetaminophen 325 mg tablet 325 mg PO QID PRN Pain 04/01/20 12/23/23 Unknown History (Tylenol) loratadine 10 mg tablet 10 mg PO QAM 04/01/20 12/23/23 Unknown History omega-3 fatty acids 1,000 mg PO QAM 04/01/20 12/23/23 Unknown History lidocaine 5 % topical patch 1 patch topical QAM 12/01/23 12/23/23 Unknown History multivitamin 1 tab PO DAILY 12/01/23 12/23/23 Unknown History Exam Exam Date and Time: December 23, 2023 1225 Height,Weight and Vital Signs: Height 5 ft Weight 51.71 kg Last Vital Signs Pulse 77 12/01/23 12:23 Resp 18 12/01/23 12:23 BP 135/84 12/01/23 12:23 Pulse Ox 99 12/01/23 12:23 O2 Del Method Room Air 12/01/23 12:23 Vital Signs Pulse Rate 77 12/01/23 12:23 Respiratory Rate 18 12/01/23 12:23 Blood Pressure 135/84 12/01/23 12:23 Pulse Oximetry 99 12/01/23 12:23 Oxygen Delivery Method Room Air 12/01/23 12:23 Temperature 98.6 F 12/23/23 10:18 Pulse Rate 74 12/23/23 10:18 Respiratory Rate 16 12/23/23 10:18 Blood Pressure 145/87 H 12/23/23 10:18 Pulse Oximetry 98 12/23/23 10:18 Oxygen Delivery Method Room Air 12/23/23 10:18 Airway Mallampati Class: II TM Dist: >3cm Neck ROM: Full Loose/Missing/Broken Teeth: Yes (molars pulled. Invisalign (buttons on teeth)) Heart: S1S2 Assessment and Plan Assessment Anesthesia Assessment: Anesthesia Plan Discussed and Chart Reviewed Final Anesthetic Review Family History of Problems with Anesthesia: No History of Problems with Anesthesia: No NPO: Yes ASA Class: II Final Preanesthetic Review: No Changes in Pt Med Stat, Meds/Allgs Chart Reviewed, Consent Obtained/Reviewed and Anes Risks/Benef Reviewed Patient Risk: Low Procedure Risk: Intermediate Anesthetic Plan Anesthetic Plan: GA and Agree w/ Assess. and Plan Disposition: Standard PACU
--- NOTE | 2023-12-23 14:38 | P.DS_ITS ---
DS: Providers Provider Date of Service: 12/23/23 Primary care physician: Claudette Pineda MD DS: Summary Time Attestation Discharge Coordination Time (in mins): 15 Quality: Safe Use of Opioids Does Pt have an Active Cancer Diagnosis on the Problem List?: No Quality: Stroke Does the patient have a stroke diagnosis?: No Physical Exam Vital Signs: Vital Signs: Last Vital Signs Temp 98.6 F 12/23/23 10:18 Pulse 74 12/23/23 10:18 Resp 16 12/23/23 10:18 BP 145/87 H 12/23/23 10:18 Pulse Ox 98 12/23/23 10:18 O2 Del Method Room Air 12/23/23 10:18 BMI result Body Mass Index 22.7 Discharge Plan Discharge Patient Disposition: Home, Self-Care Referrals: Claudette Pineda MD [Primary Care Provider] - 1 Week Discharge Medications: New oxycodone 5 mg tablet 5 mg PO Q6H PRN (Reason: severe pain (scale score 7-10)) Qty: 30 0RF Rx Instructions: Partial Fill upon patient request. Continued acetaminophen [Tylenol] 325 mg Tablet 325 mg PO QID PRN (Reason: Pain) loratadine 10 mg Tablet 10 mg PO QAM multivitamin Tablet 1 tab PO DAILY lidocaine 5 % adhesive patch,medicated 1 patch topical QAM Rx Instructions: leave on most painful area for up to 12 hrs cyclobenzaprine 10 mg tablet 10 mg PO BID PRN (Reason: muscle spasm) Qty: 10 0RF Held omega-3 fatty acids Capsule 1,000 mg PO QAM Hold Instructions: Resume on 01/23/24. Discharge Orders: Discharge Order (Routine); Ordered 12/23/23 Ordered By: Anthony Christensen Diet: Advance to usual diet Activity on Discharge: As tolerated Activity Restrictions/Additional Instructions: After your spinal surgery we ask you to observe the following restrictions/guidelines: Activity: It is normal to feel some discomfort as you increase your activity, but that will improve with time. We ask you avoid heavy lifting or acitivities that cause pain. As a general rule, 8lbs is a safe limit for lifting right after surgery. Walk as much as you feel comfortable but not to exhaustion. You will feel extra tired the first few days after surgery. Stay well hydrated. It is OK to walk up and down stairs You may return to driving when you are off narcotics (such as vicodin, oxycodone, dilaudid, etc), and you are back to normal functional capacity. If you have any concerns please check with office before driving. Return to work is specific to each patient and each surgery, so please speak with your doctor/PA at first follow up. Please bring paperwork such as FMLA at that time if you need it filled out. Medications: We will give you a short supply of narcotics after surgery (usually one weeks worth). If you need more please call the office but do not use more than prescribed. You will need to give our office 48 hours notice if you need narcotics refilled and we do not fill narcotics on weekends or evenings. If you are on a narcotic, it is a good idea to take a stool softener such as colace or senna to avoid constipation If you take blood thinner such as aspirin, Plavix, Coumadin, Effient, Eliquis etc for conditions such as Afib, DVT, Pulmonary embolus, coronary disease, stents etc please speak with your surgeon about specific details as to when you can resume these medications. You can resume NSAIDs on post op day 1 (eg: Motrin, Naproxen, etc). Follow up: Please call the office, , after surgery to arrange a 3 week follow up for wound check. Wound Care: You may remove your dressing on the first day after surgery. ?You may ?leave open to air. Please do not remove the steri strips underneath. they will fall off on their own in one week. IT IS NORMAL FOR THE WOUND TO OOZE OR BE BLOODY FOR A FEW DAYS AFTER SURGERY. ?IF THIS HAPPENS JUST PLACE NEW DRESSING OVER IT TO AVOID STAINING CLOTHES. You may shower on post op day # 1 We ask that you do not let the water soak the wound. If it does get wet, just towel dry lightly. Please do not scrub your incision or place any type of chemical/ointment on the wound. No tub baths, pools or jacuzzis for one month. If you have any leaking or redness from your wound, or fevers, please call the office. Print Language: Faroese
--- NOTE | 2023-12-23 15:23 | W.PM.OPN ---
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 I have explained the nature, purpose and benefits of the operation. I have discussed the risks and benefit of the operation including possible complications or adverse events with patient/family. Alternative(s) were discussed with the patient with their relative benefits and risks as well as the consequences of not accepting the operation were included in obtaining consent. Surgeon: SIM RICHMOND MD, PHD Procedure Assisted By: TAMI Silvestre Description of Procedure This patient is suffering from bilateral L5 due to neuroforaminal stenosis. The patient was offered a decompression of the nervous structures. The procedure complications were explained. The patient was consented. The patient was brought to the operating room and endotracheally intubated. The patient was turned in prone position on the Sb frame. Prep and drape was done followed by timeout. Physician librarian assistant provided access. A mid lumbar incision was made followed by release of the paravertebral muscle bilaterally to expose the L5 laminae and facet joints. An intraoperative x-ray was obtained to confirm the correct level. The microscope was brought in. I took over the procedure. The high-speed drill was used to do a left L5 laminotomy. #2 Kerrison was used to further remove the lamina towards the L5 foramen. The anatomy on the left side was rather difficult to interpret. With a nerve hook the medial wall of the L5 pedicle was palpated as well as the beginning of the L5 foramen. The facet joint was partially drilled down after which with a #2 Kerrison a foraminotomy was done. Finally a foraminotomy Kerrison was used to complete the foraminotomy. A long nerve hook could be passed over the nerve root but I would not be surprised if they are still residual stenosis. Turned my attention towards the right side were neuro anatomy was encountered. I performed a right L5 laminotomy and partial facetectomy. I identified the beginning of the L5 nerve root which I followed around the L5 pedicle.A #2 Kerrison was used to do an initial foraminotomy and a foraminotomy Kerrison was used to finish the foraminotomy. A long nerve hook could be passed dorsal laterally from the nerve root as a sign of adequate decompression.The microscope was removed. Hemostasis was done. Incision was closed in 2 layers. Steri-Strips were used to approximate incision. An OpSite with Tegaderm was used to cover the incision. All sponge needle counts were correct. Patient was extubated and transported in stable is to recovery room. Anesthesia: General Estimated Blood Loss (ml): Minimal Duration of Surgery: Under 60 Minutes Postoperative Plan: Discharge to home
[2023-12-23] MEDS: fentaNYL citrate/PF 100 MCG/2 ML VIAL 50 MCG IVPUSH (16:10)
[2023-12-23] MEDS: oxyCODONE HCl Immed Release 5 MG TABLET PO (16:15)
== END 2023-12-23 17:14 | disposition home or self-care (01) ==
PROVIDERS: Nurse Practitioner; PCP Internal Medicine; Visit Provider Neurological Surgery
PROC: (CPT 63047; principal; 2023-12-23 14:10)
DX: M43.17 Spondylolisthesis, lumbosacral region (principal); R26.89 Other abnormalities of gait and mobility; E78.00 Pure hypercholesterolemia, unspecified; F41.8 Other specified anxiety disorders; Z79.899 Other long term (current) drug therapy; Z88.8 Allergy status to other drugs, medicaments and biological substances
CPT/HCPCS: 63047; 36415; 80048; 85027; 93005; J0131; J0330; J1100; J1885; J2371; J2405; J2704; J3010; J3370

== ENCOUNTER → 2023-12-23 09:53 | Outpatient (BNV) | payer OTHER, SELFPAY | PROVIDERS: PCP Internal Medicine; Visit Provider Physician Assistant | DX: M99.53 Intervertebral disc stenosis of neural canal of lumbar region (principal); M99.63 Osseous and subluxation stenosis of intervertebral foramina of lumbar region | CPT/HCPCS: 63047; 99499 ==

== ENCOUNTER 2024-01-03 09:41 | Outpatient (AMB) | payer OTHER, SELFPAY ==
--- NOTE | 2024-01-03 09:50 | HO.SPINEOV ---
Intake Visit Reasons: Per Dr. Olson, c/o severe pain and fevers. Intake Note: Ms. Lori Grant is here today c/o severe pain on and fevers. 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 About 10 days ago or so she had a bilateral L5 foraminotomy. Unfortunately the pain in her legs did not improve after surgery, if anything it seems to have made it slightly more inflamed and worse. She is having more pain down the right leg than she had before surgery. Her outer calf on the left is numb. She is having a hard time standing and getting around. She is here today just to be seen and to be sure that there was nothing wrong with her recovery. I examined her and she is very slow to stand up and she is uncomfortable but she is able to demonstrate full motor strength of her distal lower extremities. Her wound is healed up beautifully, I removed the Steri-Strips. No signs of infection. I reassured her that the surgery went well, I reviewed the operative notes and I expect in time she will feel better but that the nerves remain inflamed for reasons that are unclear. We do see this after surgery that despite adequate decompression, the nerves do remain irritated. I prescribed her gabapentin, told her to continue with the oxycodone and the Tylenol and to call me later in the week and we can reassess and see how she is doing. Teodoro Olson MD, PhD [facility] Medications: New gabapentin 300 mg PO TID 90 caps 11RF Coding Level of Care Code Global (49766) Diagnoses Spondylolisthesis at L5-S1 level M43.17
== END 2024-01-03 10:23 | disposition home or self-care (01) ==
PROVIDERS: PCP Internal Medicine; Visit Provider Physician Assistant
DX: M43.17 Spondylolisthesis, lumbosacral region (principal)
CPT/HCPCS: 99024

== ENCOUNTER → 2024-01-03 09:41 | Outpatient (BNVA) | payer OTHER, SELFPAY | PROVIDERS: PCP Internal Medicine; Visit Provider Physician Assistant | DX: M43.17 Spondylolisthesis, lumbosacral region (principal) | CPT/HCPCS: 99212 ==

== ENCOUNTER 2024-01-10 10:10 | Outpatient (AMB) | payer OTHER, SELFPAY ==
[2024-01-10 10:16] VITALS: BP 118/73; PULSE 74
--- NOTE | 2024-01-10 10:16 | MHC.OFFVIS ---
Vital Signs 01/10/24 10:16 Weight 114 lb BP 118/73 Blood Pressure Location Rt brachial Position Sitting Pulse 74 Intake Visit Reasons: 1 mth follow up Bleeding hemorrhoids Intake Note: Patient here for 1m f/u anal fissure. Reports external hemorrhoid flare up due to constipation. Recently underwent back surgery on 12-23-23. Reports slowly healing. Here today using walker assistance. Patient c/o: hemorroid getting better since using Metamucil. 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 She is status post recent back surgery and has been taking narcotics. Patient has had occasional hard stool but is on a nice bowel regimen that seems to be working for her. As noted prior, patient had colonoscopy within the last year which he states was otherwise within normal limits PFSH Medical History Arthritis Gestational diabetes Migraine Clenching of teeth Snores COVID-19 Anxiety HLD (hyperlipidemia) Cervicalgia Disc degeneration, lumbar Back pain Depression Surgical History Hx of ovarian cystectomy Hx of excision of mass Hx of colonoscopy H/O: hysterectomy Social History Household Members Other:: son Are you a primary acute care occupational therapist to a significant other at home: No Do you presently have visiting nurse or other home services: No Patient Tobacco Use Status: Former Tobacco user Tobacco use type: Cigarette Years Smoked: 14 Physical Exam Vital Signs: Last Vital Signs Pulse 74 01/10/24 10:16 BP 118/73 01/10/24 10:16 GI Other: Anorectal exam demonstrates moderately sized internal and external hemorrhoids and small posterior anal fissure essentially unchanged from prior visit Assessment & Plan Assessment & Plan (1) Anal fissure: Code(s): K60.2 - Anal fissure, unspecified Category: Surgical (2) Hemorrhoids: Code(s): K64.9 - Unspecified hemorrhoids Category: Surgical Plan At present, patient was convalescing as noted above from her back surgery. Should her hemorrhoids become more symptomatic, she has been instructed to call the office from otherwise follow-up p.r.n.. She is continue her current bowel regimen. Coding Level of Care Code Est Pt Level 4 (61628) Diagnoses Anal fissure K60.2 Hemorrhoids K64.9
== END 2024-01-10 10:32 | disposition home or self-care (01) ==
PROVIDERS: PCP Internal Medicine; Visit Provider Surgery
DX: K60.2 Anal fissure, unspecified (principal); K64.9 Unspecified hemorrhoids
CPT/HCPCS: 99213

== ENCOUNTER → 2024-01-10 10:10 | Outpatient (BNVA) | payer OTHER, SELFPAY | PROVIDERS: PCP Internal Medicine; Visit Provider Surgery | DX: K60.2 Anal fissure, unspecified (principal); K64.9 Unspecified hemorrhoids; Z47.89 Encounter for other orthopedic aftercare; Z98.890 Other specified postprocedural states | CPT/HCPCS: 99212 ==

== ENCOUNTER 2024-01-10 14:27 | Outpatient (AMB) | payer OTHER, SELFPAY ==
--- NOTE | 2024-01-10 14:33 | A.SPINEOV_ITS ---
Intake Visit Reasons: 1st post op Intake Note: Ms. Lori Grant is here today for her 1st post-op visit. 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 She reports that she still has quite a bit of pain since the surgery. She actually feels as though her left-sided shooting radiculopathy has worsened since the surgery. We discussed the possible postoperative interventions that could help resolve her symptoms. She voiced significant interested in physical therapy and feels it could be very useful for her. I informed him that I am okay with sending her to physical therapy as long as they primarily focus on stretching/walking hand ADLs functionality and do not attempt any significant or heavy weightlifting/resistance training. She understands and agrees to this. I discussed the possibility of a repeat MRI physical therapy and the tincture of time do not help resolve her symptoms. Is important to remember that she is still just under 1 month out from surgery. No new neurological deficits. Patient is able to ambulate well, rises from a seated position without difficulty. Incision site is closed, well healing, with no signs of drainage. We will follow-up with the patient in 6 weeks for their 2nd postoperative visit, or sooner dependent on outcomes of physical therapy/possible MRI. Anthony Olson MD,PhD [facility] Orders: Orders PT Evaluation and Treatment Today Z98.890 - Other specified postprocedural states Coding Level of Care Code Global (79593) Diagnoses Status post lumbar spine surgery for decompression of spinal cord Z98.890
== END 2024-01-10 15:35 | disposition home or self-care (01) ==
PROVIDERS: PCP Internal Medicine; Visit Provider Physician Assistant
DX: Z98.890 Other specified postprocedural states (principal)
CPT/HCPCS: 99024

== ENCOUNTER 2024-02-15 15:35 | Outpatient (AMB) | payer OTHER, SELFPAY ==
--- NOTE | 2024-02-15 15:36 | A.SPINEOV_ITS ---
Intake Visit Reasons: follow up/PT for 2wks Intake Note: Ms. Lori Grant is here today to F/u after PT. 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 She states she still has several sessions left. She continues to complain of left-sided leg pain but does state it is much better than it was prior to the surgery. However, her more significant complaint is her gastrocnemius numbness which he states has been ongoing since the surgery. It is unclear whether or not this has worsened and was present preoperatively or has only been there since the surgery as she does describe some nonspecific hypoesthesia in her left gastrocnemius area prior to her procedure. The patient is able to ambulate well and rises from a seated position without difficulty. Her posterior incision site is closed and well healed. She is able to stand on her toes and her heels without issue. After reviewing her initial consult notes it does appear there was an L5-S1 spondylolisthesis. I want to make sure that no instability was created by the lumbar decompression surgery, and would further more like to evaluate the exiting nerve roots from L4-S1 to ensure there is nothing being compressed that may be contributing to her gastrocnemius numbness. I will follow up again with her after her MRI is complete and read by Radiology. Anthony Olson MD,PhD [facility] Orders: Orders MR lumbar spine wo/w con Today Z98.890 - Other specified postprocedural states Coding Level of Care Code Global (82518) Diagnoses Status post lumbar spine surgery for decompression of spinal cord Z98.890
== END 2024-02-15 16:00 | disposition home or self-care (01) ==
PROVIDERS: PCP Internal Medicine; Visit Provider Physician Assistant
DX: Z98.890 Other specified postprocedural states (principal)
CPT/HCPCS: 99024

== ENCOUNTER → 2024-02-15 15:35 | Outpatient (BNVA) | payer OTHER, SELFPAY | PROVIDERS: PCP Internal Medicine; Visit Provider Physician Assistant | DX: Z98.890 Other specified postprocedural states (principal) | CPT/HCPCS: 99212 ==

== ENCOUNTER 2024-03-09 10:00 | Outpatient (RCR) | payer OTHER, SELFPAY ==
--- NOTE | 2024-02-01 13:19 | MHC.PT.EP ---
[facility] [place] Office [place] Office [place] Office [address] Halle Curtis [address] [phone] F: [phone] F: [phone] F: [phone] F: [phone] Physical Therapy Plan of Care Date of Evaluation: 01/31/24 Date of Surgery: 12/23/23 Diagnosis: Referring dx of bilateral leg pain. PSH: B L5 laminotomy, partial facetectomy and foraminotomy (12/23/23) Assessment: Pt is a 58yo female referred to PT for bilateral leg pain. Sign and symptoms are consistent with lumbar radiculopathy. Pt has a significant PSH of B L5 laminotomy, partial facetectomy and foraminotomy on 12/23/23. Her impairments include persistent L<R LE pain and radicular symptoms, deficits in lumbar range of motion, deficits in sensation, gait/postural abnormalities, and inability to independently perform functional duties (cleaning, bathing, meal prep, laundry). Pt is a good candidate for skilled PT due to age, motivation to participate in PT, modifiable nature of her impairments, and prognosis of her PT diagnosis. Barriers to PT include past surgical intervention for current complaint. Pt will benefit from skilled PT for progressive strengthening of hip/glut/quad/calves, lumbopelvic stability, flexibility of HS/GS/HF, STM to improve tissue elasticity, functional training for proper lifting mechanics, and skills for pain management. Eval is of mod complexity due to prior surgical intervention for presenting symptoms. 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 Manual therapy to restore motion and function. Therapeutic exercise to improve strength and flexibility. Neuromuscular re-education for posture and balance. Therapeutic activities to return to functional activities of daily living. Electronically signed by: Tricia Barron PT, DPT Please sign and return to therapist. Thank you for your referral.
--- NOTE | 2024-03-14 09:20 | MHC.PT.DC ---
[facility] [place] Office [place] Office [place] Office [address] Halle Curtis [address] [phone] F: [phone] F: [phone] F: [phone] F: [phone] Physical Therapy Discharge Report Diagnosis: Referring dx of bilateral leg pain. PSH: B L5 laminotomy, partial facetectomy and foraminotomy (12/23/23) Date of Surgery: 12/23/23 Date of Evaluation: 01/31/24 Date of Discharge: 03/14/24 Treatments to Date: 8 Cancellations to Date: 1 No Shows to Date: 3 Discharge Status: Visit Non-compliance Discharge Summary: The patient overall was reporting little to no change in her pain. She admitted to not being compliant with the recommendations and home exercise program given by this therapist. She has no showed three appointments. Per [facility] Therapy attendance policy she is discharged for non-compliance. Electronically signed by: Tricia Barron PT, DPT Please sign and return to therapist. Thank you for your referral.
== END 2024-03-14 09:21 | disposition home or self-care (01) ==
LOC: HO.PT 10:00
PROVIDERS: PCP Internal Medicine; Visit Provider Physician Assistant
DX: Z98.890 Other specified postprocedural states (principal)
CPT/HCPCS: 97110; 97162; 97530

== ENCOUNTER 2024-04-06 10:09 | Outpatient (REF) | payer OTHER, SELFPAY ==
[2024-04-06 10:40] LABS: MANUAL DIFF FLAG NO
[2024-04-06 11:17] LABS: Basophils Percent Auto 0.3 % (0-2); Eosinophils Absolute Auto 0.1 X10*3/uL (0.0-0.4); Eosinophils Percent Auto 1.8 % (0-4); Hemoglobin 12.8 g/dl (12.0-16.0); Imm Gran Abs Auto 0.01 X10*3/uL (0.00-0.03); Imm Gran Pct Auto 0.3 % (0.0-0.4); Lymphocytes Percent Auto 48.9 % (20-40); Mean Corpuscular Hemoglobin 26.6 pg (27.0-33.0); Mean Platelet Volume 11.4 fL (9.4-12.3); Monocytes Absolute Auto 0.2 X10*3/uL (0.1-1.2); Neutrophils Absolute Auto 1.7 x10*3/uL (2.0-8.3); Neutrophils Percent Auto 42.7 % (45-73); Platelet Count 225 X10*3/uL (160-400); Red Blood Count 4.82 X10*6/uL (4.20-5.50); Red Cell Distribution Width 13.9 % (11.0-16.0)
[2024-04-06 12:00] LABS: Alanine Aminotransferase 24 U/L (0-31); Albumin Level 4.6 g/dL (3.5-5.0); Alkaline Phosphatase 79 U/L (39-117); Anion Gap 10 (12-20); Aspartate Amino Transferase 26 U/L (5-31); Bilirubin Total 0.2 mg/dL (0.0-1.0); Blood Urea Nitrogen 10 mg/dL (9-16); Calcium 10.7 mg/dL (8.4-10.2); Carbon Dioxide 30 mmol/L (22-29); Chloride 106 mmol/L (96-108); Cholesterol 215 mg/dL (<200); Estimated Glomerular Filt Rate > 60; Glucose Random 99 mg/dL (60-115); HDL Cholesterol 35 mg/dL (>40); LDL Cholesterol Calculated 135 mg/dL (<100); Potassium 3.9 mmol/L (3.3-5.1); Sodium 142 mmol/L (135-145); Total Protein 7.9 g/dL (6.5-8.0); Triglycerides 226 mg/dL (<150)
[2024-04-06 12:25] LABS: Vitamin B12 898 pg/mL (200-900)
== END 2024-04-06 10:10 | disposition home or self-care (01) ==
LOC: HO.LAB 10:09
PROVIDERS: PCP Internal Medicine; Visit Provider Internal Medicine
DX: Z00.00 Encounter for general adult medical examination without abnormal findings (principal); E78.00 Pure hypercholesterolemia, unspecified; H81.391 Other peripheral vertigo, right ear; M51.16 Intervertebral disc disorders with radiculopathy, lumbar region
CPT/HCPCS: 36415; 80053; 80061; 82607; 85025

== ENCOUNTER 2024-06-01 10:52 | Outpatient (AMB) | payer OTHER, SELFPAY ==
--- NOTE | 2024-06-01 10:53 | HO.SPINEOV ---
Intake Visit Reasons: left leg numbness/ sharp hip pain Intake Note: Ms. Lori Grant is here today c/o Left leg Numbness and Sharp hip pain. 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
--- NOTE | 2024-06-01 11:16 | HO.SPINEOV ---
Intake Visit Reasons: left leg numbness/ sharp hip pain Allergies prochlorperazine [From Compazine] Allergy (Severe, Verified 01/10/24 10:20) Anaphylaxis aspirin Allergy (Intermediate, Verified 01/10/24 10:20) Abdominal Pain Penicillins Allergy (Intermediate, Verified 01/10/24 10:20) Headache Assessment & Plan Assessment & Plan (1) Status post lumbar spine surgery for decompression of spinal cord: Code(s): Z98.890 - Other specified postprocedural states Category: Surgical Plan HPI: Chanel is a pleasant 58 year old female who comes in today for subsequent follow up in regards to her continued left leg pain and numbness. She was previously sent for an MRI which was denied by her insurance company. She has completed physical therapy and continues to have numbness and pain in her left lower extremity. When describing the pain she runs her hand over the posterior aspect of her left lateral thigh. She states this area is also intermittently numb and involves the medial calf/gastrocnemius. She is concerned that she feels the numbness is getting worse, but the pain has remained about the same since I saw her last despite physical therapy. She has been attempting to use [id number] remedies such as vitamin supplements and Tylenol/ibuprofen without significant relief of her pain. She brought in some of her vitamins supplements to her visit today for review. It appears to be a generic musculoskeletal support & wound healing regimen. Imaging: Dynamic lumbar spine imaging taken during this visit show no evidence of overt instability. Exam: The patient has about 4/5 strength with left-sided knee extension and knee flexion. The rest of her strength in the lower extremities is 5/5. Her reflexes are 2+ intact in the lower extremities. She ambulates well without an antalgic gait but she rises from a seated position by bracing herself on the chair. Plan: Chanel appears to be suffering from progressive numbness in her left lower extremity and continued pain despite lumbar decompression via bilateral L5 Laminotomy, Partial facetectomy and foraminotomy in December of this year. She has completed a full round of physical therapy, is attempting utilize vitamin supplements, as using [id number] medications, and her x-rays are generally unremarkable. I believe she may continue to have some kind of left-sided nerve root impingement, and a postoperative lumbar MRI is of pertinent importance. I will again place the order. Anthony Olson MD,PhD [facility] Orders: Orders XR lumbar spine 4V min Today Z98.890 - Other specified postprocedural states MR lumbar spine wo/w con Today Z98.890 - Other specified postprocedural states Coding Level of Care Code Est Pt Level 3 (95622) Diagnoses Status post lumbar spine surgery for decompression of spinal cord Z98.890
== END 2024-06-01 11:36 | disposition home or self-care (01) ==
PROVIDERS: PCP Internal Medicine; Visit Provider Physician Assistant
DX: Z98.890 Other specified postprocedural states (principal)
CPT/HCPCS: 99213

== ENCOUNTER 2024-06-01 11:24 | Outpatient (REF) | payer OTHER, SELFPAY ==
--- NOTE | ~2024-06-01 | XR_ITS ---
EXAMINATION: XR LUMBAR SPINE CLINICAL INFORMATION: Other specified postprocedural states, including a personal history of surgery Z98.890. COMPARISON: XR Lumbar spine 11/10/2023 TECHNIQUE: AP, lateral neutral, lateral flexion, lateral extension radiographs of the lumbar spine. FINDINGS: 5 lumbar type vertebral bodies are identified. Right upper quadrant cholecystectomy clips are visualized. 9 mm anterolisthesis of L5 on S1 is present and is without interval change in degree in comparison between flexion and extension radiographs. No elicited subluxations are noted with the extension and flexion radiographs. Normal vertebral body height. Mild intervertebral disc space narrowing at L5-S1. Marked bilateral facet hypertrophic changes L5-S1. XR/XR lumbar spine 4V min IMPRESSION: L5-S1 grade 1 (9 mm) anterolisthesis. Prominent bilateral facet hypertrophic changes are present and the anterolisthesis likely represents degenerative anterolisthesis. Mild intervertebral disc space narrowing L5-S1 consistent with underlying degenerative disc disease. Electronically signed by: Nathan Soria MD 07/06/2024 04:17 PM [facility]
== END 2024-06-01 11:25 | disposition home or self-care (01) ==
LOC: HO.HOSX 11:24
PROVIDERS: Visit Provider Physician Assistant
DX: Z98.890 Other specified postprocedural states (principal); M51.379 Other intervertebral disc degeneration, lumbosacral region without mention of lumbar back pain or lower extremity pain
CPT/HCPCS: 72110

== ENCOUNTER 2024-06-18 15:19 | Outpatient (REF) | payer OTHER, SELFPAY ==
--- NOTE | ~2024-06-18 | MR_ITS ---
EXAMINATION: MR LUMBAR SPINE WITHOUT AND WITH CONTRAST CLINICAL INFORMATION: Post procedure. Progressive left lower extremity numbness. COMPARISON: None available. TECHNIQUE: MRI of the lumbar spine was obtained using routine sequences with and without contrast. Intravenous contrast: Gadolinium 5.5 mL without reported immediate complications. FINDINGS: Submitted for interpretation on June 20, 2024. Last rib-bearing vertebra labeled T12. No bone marrow STIR signal abnormality in the vertebral bodies. There is subtle bone marrow STIR signal in the posterior elements of L5-S1. There is disc desiccation at L4-5 and L5-S1 level. There is a 3 mm grade 1 anterolisthesis L5-S1 resulting in uncovered disc. Focal hyperintense T2 signal in the posterior intervertebral disc of L4-5 likely focal annular fissure. Conus medullaris ends at superior endplate of L1 with normal signal. There is focal hyperintense STIR signal with associated enhancement involving the posterior spinous processes of L2. There is edema pattern with the heterogeneous enhancement extending from the deep fat planes into the interspinous processes ligamentous from L3 to S1 without focal enhancing collection. Status post laminectomy, L4-5 and L5-S1. There is no grouping or clumping of the neural elements of the thecal sac. There is no empty thecal sac sign. T12-L1: No disc herniation. No neuroforamina stenosis. L1-2: No disc herniation. No neuroforamina stenosis. L2-3: Broad-based disc bulging. Facet joint and ligamentum flavum hypertrophy. No central spinal canal stenosis. Bilateral neuroforamina narrowing. L3-4: Broad-based disc bulging. Facet joint and ligamentum flavum hypertrophy. Bilateral neuroforamina narrowing encroaching the exiting nerve roots. No central spinal canal stenosis. L4-5: Broad-based disc bulging. Focal hyperintense T2 signal in the right side of the posterior disc. Facet joint and ligamentum flavum hypertrophy. Bilateral neuroforamina stenosis encroaching the exiting nerve roots. L5-S1: Grade 1 anterolisthesis and a left subarticular and foraminal disc herniation encroaching the left S1 and left L5 nerve roots. There is encroachment upon the right L5 and S1 nerve roots on a degenerative basis and related to the anterolisthesis. There is a 4 cm exophytic nonenhancing fluid signal characteristic lesion in the posterior upper pole left kidney. No enhancing mass in the thecal sac or the prevertebral compartment. . MR/MR lumbar spine wo/w con IMPRESSION: Grade 1 anterolisthesis L5-S1 and left subarticular and foraminal disc herniation L5-S1 encroaching likely compressing the L5 and S1 nerve roots. Bilateral neuroforamina stenosis L4-5 encroaching the exiting nerve roots on a degenerative basis. Edema pattern without fluid collections at the surgical site, L3 S1. Electronically signed by: Benjie Mcarthur MD 06/20/2024 10:09 AM [facility]
[2024-06-18] MEDS: gadobutroL 7.5 ML VIAL IVPUSH (16:09)
== END 2024-06-18 15:20 | disposition home or self-care (01) ==
LOC: HO.MRI 15:19
PROVIDERS: PCP Internal Medicine; Visit Provider Physician Assistant
DX: Z98.890 Other specified postprocedural states (principal)
CPT/HCPCS: 72158; A9585

== ENCOUNTER → 2024-06-18 15:29 | Outpatient (BNV) | payer OTHER, SELFPAY | PROVIDERS: PCP Internal Medicine; Visit Provider Radiology Diagnostic Radiology | DX: M51.16 Intervertebral disc disorders with radiculopathy, lumbar region (principal) | CPT/HCPCS: 72158 ==

== ENCOUNTER 2024-06-28 14:58 | Outpatient (AMB) | payer OTHER, SELFPAY ==
--- NOTE | 2024-06-28 15:17 | A.SPINEOV_ITS ---
Intake Visit Reasons: MRI f/u possible sx discussion Intake Note: Ms. Lori Grant is here today f/u on the results to her MRI and Discuss surgery. 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 Olson and I reviewed the patient's MRI together and we believe that she would benefit from a left-sided L5 foraminotomy. I discussed this possibility with the patient, who asked if there any other conservative measures that can be undertaken before considering subsequent surgery. I informed her that she would likely get good relief from a left-sided L5 transforaminal epidural steroid injection. She asked several questions regarding this during this visit. I encouraged her to follow up with our colleagues in pain management to discuss this. I will place a referral for her to see them again. We may see Chanel back in the office after her injection dependent on her reaction to it. If she obtains good relief for a period of time, then that may be the route she sticks with for the time being. If she only gets minor a temporary relief, we may consider doing a foraminotomy sooner rather than later. Anthony Olson MD,PhD [facility] Orders: Referrals Pain Management Referral Z98.890 - Other specified postprocedural states Coding Level of Care Code Est Pt Level 2 (56395) Diagnoses Status post lumbar spine surgery for decompression of spinal cord Z98.890
--- OUTSIDE RECORDS SUMMARY | 2024-06-28 17:26 | XMS_ITS | Clinical Summary ---
Author Organization [facility] [address] [place] [address] Care Team Providers Care Conduit Worker Name Role Phone Claudette Pineda MD Primary Care Provider Social History Tobacco Use Types Packs/Day Years Used Date Smoking Tobacco: Never Smokeless Tobacco: Never Sex and Gender Information Value Date Recorded Sex Assigned at Not on file Gender Identity Not on file Sexual Orientation Not on file Obstetrics History Plan of Treatment Health Maintenance Due Date Last Done Comments Breast Cancer Screening 1967 DTaP,Tdap,and Td Vaccines (1 - Tdap) 1986 Hepatitis B Vaccines (1 of 3 - 19+ 3-dose series) 1986 Cervical Cancer Screening: P ap Smear 1988 Zoster Vaccines (1 of 2) 2017 Colorectal Cancer Screening: Colonoscopy 05/10/2022 Depression Screening 05/10/2022 HIV Screening 05/10/2022 Hepatitis C Screening 05/10/2022 Social Influencers of Health Screening 05/10/2022 COVID-19 Vaccine ( - 2023-2 5 season) 2024 Influenza Vaccine (#1) 2024 HIB Vaccines Aged Out No longer eligi ble based on patient's age to complete this topic HPV Vaccines Aged Out No longer eligi ble based on patient's age to complete this topic Hepatitis A Vaccines Aged Out No long er eligible based on patient's age to complete this topic IPV Vaccines Aged Out No longer eligi ble based on patient's age to complete this topic MMR Vaccines Aged Out No longer eligi ble based on patient's age to complete this topic Meningococcal ACWY Vaccine Aged Out N o longer eligible based on patient's age to complete this topic Pneumococcal Vaccine: Pediat rics (0 to 5 Years) and At-Risk Patients (6 to 64 Years) Aged Out No longer eligible b ased on patient's age to complete this topic RSV Immunization Patients Un dee 20 months Aged Out No longer eligible b ased on patient's age to complete this topic Varicella Vaccines Aged Out No longer eligible based on patient's age to complete this topic Care Teams Conduit Worker Relationship Specialty Start Date End Date Claudette Pineda MD [address] [facility] [address] [place], [place] PCP - General Internal Medicine 08/07/21
== END 2024-06-28 16:04 | disposition home or self-care (01) ==
PROVIDERS: PCP Internal Medicine; Visit Provider Physician Assistant
DX: Z98.890 Other specified postprocedural states (principal)
CPT/HCPCS: 99212

== ENCOUNTER → 2024-06-28 14:58 | Outpatient (BNVA) | payer OTHER, SELFPAY | PROVIDERS: PCP Internal Medicine; Visit Provider Physician Assistant | DX: Z98.890 Other specified postprocedural states (principal) | CPT/HCPCS: 99212 ==

== ENCOUNTER 2024-07-10 12:51 | Outpatient (AMB) | payer OTHER, SELFPAY ==
--- NOTE | 2024-07-10 12:56 | A.OFFVIS_ITS ---
Vital Signs 07/10/24 12:58 Height 5 ft Weight 122 lb BMI 23.8 BP 154/75 H Blood Pressure Location Lt brachial Position Sitting Respiration 16 Pulse 71 Pulse Source Pulse Oximeter Pulse Oximetry (%) 99 Oxygen Delivery Method Room Air Intake Visit Reasons: FU/Other specified postprocedural states Commonwealth Attorney Required: No Allergies prochlorperazine [From Compazine] Allergy (Severe, Verified 07/10/24 12:59) Anaphylaxis aspirin Allergy (Intermediate, Verified 07/10/24 12:59) Abdominal Pain Penicillins Allergy (Intermediate, Verified 07/10/24 12:59) Headache Medication List - Last Reconciled 07/10/[address] LPN acetaminophen (Tylenol) 325 mg PO QID PRN lidocaine 5% 1 patch topical QAM loratadine 10 mg PO QAM multivitamin 1 tab PO DAILY omega-3 fatty acids 1,000 mg PO QAM [rolling walker As directed Status post lumbar surgery, gait instability and difficulty walking.] HPI Comments Details: Chanel is back in my office again after long period of absence. She was seen in July of 2023 and she was offered caudal epidural steroid injection. She never went for the procedure. In 2020 she was under my observation for radiculopathy of the lower lumbar spine with radiation into the right lower extremity all the way to her toes. Attempt to perform therapeutic L5-S1 transforaminal epidural steroid injection as well as attempt to perform interlaminar L5-S1 epidural steroid injection failed ,the procedure was very technically difficult. The advancement of the needle met with bone formation on transforaminal approach and interlaminar approach was also unsuccessful because of the very small intervertebral interval. I after that send her for physical therapy and ordered her NSAIDs, she was very eager to start physical therapy, she continued home exercise program and her pain for a while got better. Dr. Hira Olson examined this patient recently and offered her foraminotomy L5-S1. However before that he recommended performance of transforaminal epidural steroid injection. Unfortunately this is very technically difficult. Last time I tried to perform this and technical difficulties did not allow me to complete the procedure. Therefore I think that ideal injection for this patient would be caudal epidural steroid injection with catheter. I need to perform this procedure under anesthesia. [facility] Medical History Arthritis Gestational diabetes Migraine Clenching of teeth Snores COVID-19 Anxiety HLD (hyperlipidemia) Cervicalgia Disc degeneration, lumbar Back pain Depression Surgical History Hx of ovarian cystectomy Hx of excision of mass Hx of colonoscopy H/O: hysterectomy Social History Household Members Other:: son Are you a primary grounds caretaker to a significant other at home: No Do you presently have visiting nurse or other home services: No Patient Tobacco Use Status: Former Tobacco user Tobacco use type: Cigarette Years Smoked: 14 Review of Systems Const All systems reviewed & are unremarkable except as noted in HPI and below Neuro Denies confusion Psych Denies confusion Physical Exam Vital Signs: Last Vital Signs Pulse 71 07/10/24 12:58 Resp 16 07/10/24 12:58 BP 154/75 H 07/10/24 12:58 Pulse Ox 99 07/10/24 12:58 Oxygen Delivery Method Room Air 07/10/24 12:58 BMI result Body Mass Index 23.8 Const General: No confusion Orientation/consciousness: No confusion Eyes Pupils: Equal, round and reactive pupils present EOM: EOMs intact bilaterally Neck Neck: No full ROM (Limited range of motion in the neck.) Chest Chest palpation & inspection: normal inspection of the chest Resp Effort & Inspection: normal respiratory effort, able to speak in complete sentences, normal respiratory pattern, no audible wheezes and no cough Cardio Jugular venous distension: no JVD Back/Spine/Pelvis Other: tenderness on palpation in right-sided flank and chest,. Pain aggravation with deep breath.: no swelling or deformity, full ROM b/l hips, knees, ankles, with results with lumbar spine motions. SLR on the right and on the left results in significant pain aggravation,Lassegue test is also aggravate pain to stronger extend on the right but also on the left. Neuro General: No confusion Cranial nerves: Yes Equal, round and reactive pupils present Psych Speech and movement: Normal speech and movement present Affect: normal affect Attitude: cooperative Results Reviewed Results Reviewed: MRI lumbar spine RAyus. 06/02/2023. Findings: Vertebral heights are well-maintained. Bone marrow signal is within normal limits. No suspicious osseous lesions are identified. Conus medullaris is unremarkable. Paraspinal soft tissues and visualized portion of the abdomen and pelvis are unremarkable. At L1-L2, L2-L3, L3-L4 there is no significant disc herniation or protrusion. No central canal or neural foraminal stenosis is demonstrated. At L4-5 there is no significant disc herniation or protrusion. No central canal or neural foraminal stenosis is demonstrated. There is loss of normal T2 hyperintense disc signal. There is a mild broad-based disc bulge and ligamentum flavum hypertrophy with mild uncovertebral hypertrophy. L5-S1 5 mm anterolisthesis. Diffuse loss of normal T2 hyperintense signal. Broad-based disc bulge with ligamentum flavum and uncovertebral hypertrophy without clinically significant central canal stenosis. There is lateral disc bulging worse on the right than on the left encroaching upon the right exiting L5 nerve root. This was worsened in the interval. Assessment & Plan Assessment & Plan (1) Status post lumbar spine surgery for decompression of spinal cord: Code(s): Z98.890 - Other specified postprocedural states Category: Surgical (2) Spondylolisthesis at L5-S1 level: Code(s): M43.17 - Spondylolisthesis, lumbosacral region Category: Medical (3) Disc degeneration, lumbar: Code(s): M51.36 - Other intervertebral disc degeneration, lumbar region Category: Medical (4) Radiculopathy, lumbar region: Code(s): M54.16 - Radiculopathy, lumbar region Category: Medical Plan Dr. Rollins offered the patient transforaminal epidural steroid injection however I already tried few years ago this procedure and it was not very successful. Bony formation on interlaminar as well as transforaminal epidural steroid injections did not allow me to go into appropriate anatomical targets. I offered her today to perform caudal epidural steroid injection instead. This will be caudal epidural steroid injection with catheter under sedation. I here by testify that I spent 33 minutes in conversation with this patient as well as evaluating her prior records evaluating her prior diagnostic studies planning her care and organizing this note. Coding Level of Care Code Est Pt Level 4 (28488) Diagnoses Status post lumbar spine surgery for decompression of spinal cord Z98.890 Spondylolisthesis at L5-S1 level M43.17 Disc degeneration, lumbar M51.36 Radiculopathy, lumbar region M54.16
[2024-07-10 12:58] VITALS: BP 154/75; PULSE 71; RESP 16; O2SAT 99; BMI 23.8
--- OUTSIDE RECORDS SUMMARY | 2024-07-10 14:09 | XMS_ITS | Clinical Summary ---
Author Organization [facility] & [facility] lin Address [address] [place] [address] Care Team Providers Care Supervisor Pleating Name Role Phone Abril De Paz DO Primary Care Provider Social History Tobacco Use Types Packs/Day Years Used Date Smoking Tobacco: Never Assessed Comments Unknown Sex and Gender Information Value Date Recorded Sex Assigned at Not on file Legal Sex Female 3:52 PM EDT Gender Identity Not on file Sexual Orientation Not on file Plan of Treatment Health Maintenance Due Date Last Done Comments Colorectal Cancer: COLONOSCO PY Screening every 10 yrs (or Modifier) 1967 Depression: Screening Annual ly using PHQ-2/9 in Adults 18 yrs or above (or HM Modifier)([facility]) 1985 Hepatitis C Virus Infection in Adolescents and Adults: Screening (or Modifier) ([facility]) 1985 [facility] Screening Reminder: Gaby tejada for all adults ([facility]) 1985 Tobacco Smoking Cessation: i n Adults excluding Women: Behavioral and Pharmacotherapy Interventions ([facility]) 1985 DTaP/Tdap/Td Vaccines ([facility]) (1 - Tdap) 1986 Cervical Cancer Screenin 1-65 yrs of age (or Modifier) 1988 Cervical Cancer Screening: P ap every 3 yrs pts age 21-65 1988 Cervical Cancer: Pap Screeni ng with Modifier timing ([facility]) 1988 Cervical Cancer: hrHPV alone or with cotesting Pap for Pts 30-65yrs screening every 5yrs ([facility]) 1988 Colorectal Cancer Screening 45 -75 Yrs (or HM Modifier) 2012 Colorectal Cancer: FLEXIBLE SIGMOIDOSCOPY Screening every 5 yrs 2012 Colorectal Cancer: Fecal Immunochemical Test (FIT) Annually [facility] 2012 Colorectal Cancer: High-sens itivity gFOBT Screening Annually [facility] 2012 Colorectal Cancer: Stool Col oguard Screening every 3 yrs 2012 Colorectal Cancer:CT Colonog juan alberto Screening every 5 yrs 2012 Lipid Screening: Every 5 yrs for Women aged 45+ (or HM Modifier) ([facility]) 2013 Breast Cancer: Screening Gaby ually age 50-74 yrs (or HM Modifier)([facility]) 2017 Zoster/Shingles Vaccine Seri es Screening: Adults aged 18+ yrs (or HM Modifiers)([facility]) (1 of 2) 2017 Flu Vaccination: Yearly for ages 18mos through 64 years (or Modifier)([facility]) 01/06/2024 COVID-19 Vaccine Screening: Initial Series and Booster Status ([facility]) (2023- season) 2024 Pneumococcal Vaccination Scr eening: Pts 0-19 & 19-64 yrs of age ([facility]) Aged Out No longer eligible based on patient's age to complete this topic Medical Devices Not on file Insurance [facility] Care Teams Supervisor Pleating Relationship Specialty Start Date End Date Abril De Paz DO [address] [place] [phone] PCP - General Geriatric Medicine 02/23/20
--- OUTSIDE RECORDS SUMMARY | 2024-07-10 14:09 | XMS_ITS | Clinical Summary ---
Author Organization [facility] Address [address] [place] [address] Care Team Providers Care E Mail System Administrator Name Role Phone Claudette Pineda MD Primary Care Provider [phone] Social History Tobacco Use Types Packs/Day Years [...] age to complete this topic Care Teams E Mail System Administrator Relationship Specialty Start Date End Date Claudette Pineda MD [address] [facility] [address] [place], [place] PCP - General Internal Medicine 08/07/21
== END 2024-07-10 13:12 | disposition home or self-care (01) ==
PROVIDERS: PCP Internal Medicine; Visit Provider Anesthesiology
DX: M43.17 Spondylolisthesis, lumbosacral region (principal); M51.369 Other intervertebral disc degeneration, lumbar region without mention of lumbar back pain or lower extremity pain; M54.16 Radiculopathy, lumbar region; Z98.890 Other specified postprocedural states
CPT/HCPCS: 99214

== ENCOUNTER → 2024-07-10 12:51 | Outpatient (BNVA) | payer OTHER, SELFPAY | PROVIDERS: PCP Internal Medicine; Visit Provider Anesthesiology | DX: M43.17 Spondylolisthesis, lumbosacral region (principal); M51.360 Other intervertebral disc degeneration, lumbar region with discogenic back pain only; M54.16 Radiculopathy, lumbar region; Z98.890 Other specified postprocedural states | CPT/HCPCS: 99212 ==

== ENCOUNTER 2024-09-08 07:05 | Day surgery (SDC) | payer OTHER, SELFPAY ==
--- NOTE | 2024-09-07 11:51 | HO.ANESPROP2 ---
Documented by User: Shruti Lezama NP 09/07/24 11:58 HPI - Anesthesia Eval Consult details Narrative: 59yo F for Caudal Epidural Steroid Injection with Catheter s/p L5 Foraminotomies 12/2023 with GA-ETT 7, laryngospasm after extubation PMFSH Active Problems Active Problems: All Active Problems Radiculopathy, lumbar region (Acute) Status post lumbar spine surgery for decompression of spinal cord (Acute) Anal fissure (Acute) Hemorrhoids (Acute) Spondylolisthesis at L5-S1 level (Acute) Myofascial pain syndrome (Acute) Cervicalgia (Acute) Disc degeneration, lumbar (Acute) Past Medical History Medical History Arthritis Gestational diabetes Migraine Clenching of teeth Snores COVID-19 Anxiety HLD (hyperlipidemia) Cervicalgia Disc degeneration, lumbar Back pain Depression Family History Family history of problems with anesthesia: No Surgical History Surgical History Hx of ovarian cystectomy Hx of excision of mass Hx of colonoscopy H/O: hysterectomy History of Problems with Anesthesia: No Social History Social History Household Members Other:: son Are you a primary health care marketing manager to a significant other at home: No Do you presently have visiting nurse or other home services: No Patient Tobacco Use Status: Former Tobacco user Tobacco use type: Cigarette Years Smoked: 14 Have you been hit, kicked, punched, or otherwise hurt by someone within the past year? If so, by whom?: No Are you DNR?: No Advance Directives: No Advance Directives Information Provided: Yes Poor oral hygiene: No Meds Allergies Allergy/AdvReac Type Severity Reaction Status Date / Time prochlorperazine Allergy Severe Anaphylaxis Verified 09/08/24 07:42 [From Compazine] aspirin Allergy Intermediate Abdominal Verified 09/08/24 07:42 Pain Penicillins Allergy Intermediate Headache Verified 07/10/24 12:59 oxycodone Allergy bloody Verified 09/08/24 07:42 stools Home Medications ?Medication ?Instructions ?Recorded ?Confirmed ?Last Taken ?Type acetaminophen 325 mg tablet 325 mg PO QID PRN Pain 04/01/20 09/08/24 Unknown History (Tylenol) loratadine 10 mg tablet 10 mg PO QAM 04/01/20 09/08/24 Unknown History omega-3 fatty acids 1,000 mg PO QAM 04/01/20 09/08/24 Unknown History lidocaine 5 % topical patch 1 patch topical QAM 12/01/23 09/08/24 Unknown History multivitamin 1 tab PO DAILY 12/01/23 09/08/24 Unknown History Exam Pertinent Lab Results Pertinent Lab Results: Laboratory Tests 04/06/24 10:39 WBC 4.0 L Hgb 12.8 Hct 40.0 Plt Count 225 Sodium 142 Potassium 3.9 Chloride 106 Carbon Dioxide 30 H BUN 10 Creatinine 0.70 Narrative Narrative: EKG 2023 Vent. Rate : 069 BPM Atrial Rate : 069 BPM P-R Int : 172 ms QRS Dur : 074 ms QT Int : 366 ms P-R-T Axes : 056 029 051 degrees QTc Int : 392 ms Normal sinus rhythm with sinus arrhythmia Nonspecific ST abnormality Abnormal ECG No previous ECGs available Assessment and Plan Assessment Anesthesia Assessment: Chart Reviewed Final Anesthetic Review Family History of Problems with Anesthesia: No History of Problems with Anesthesia: No Documented by User: Ángel Goldberg MD 09/08/24 08:10 [facility] Past Medical History Medical History Arthritis Gestational diabetes Migraine Clenching of teeth Snores COVID-19 Anxiety HLD (hyperlipidemia) Cervicalgia Disc degeneration, lumbar Back pain Depression Surgical History Surgical History Hx of ovarian cystectomy Hx of excision of mass Hx of colonoscopy H/O: hysterectomy Social History Social History Household Members Other:: son Are you a primary health care marketing manager to a significant other at home: No Do you presently have visiting nurse or other home services: No Patient Tobacco Use Status: Former Tobacco user Tobacco use type: Cigarette Years Smoked: 14 Have you been hit, kicked, punched, or otherwise hurt by someone within the past year? If so, by whom?: No Are you DNR?: No Advance Directives: No Advance Directives Information Provided: Yes Poor oral hygiene: No Meds Allergies Allergy/AdvReac Type Severity Reaction Status Date / Time prochlorperazine Allergy Severe Anaphylaxis Verified 09/08/24 07:42 [From Compazine] aspirin Allergy Intermediate Abdominal Verified 09/08/24 07:42 Pain Penicillins Allergy Intermediate Headache Verified 07/10/24 12:59 oxycodone Allergy bloody Verified 09/08/24 07:42 stools Home Medications ?Medication ?Instructions ?Recorded ?Confirmed ?Last Taken ?Type acetaminophen 325 mg tablet 325 mg PO QID PRN Pain 04/01/20 09/08/24 Unknown History (Tylenol) loratadine 10 mg tablet 10 mg PO QAM 04/01/20 09/08/24 Unknown History omega-3 fatty acids 1,000 mg PO QAM 04/01/20 09/08/24 Unknown History lidocaine 5 % topical patch 1 patch topical QAM 12/01/23 09/08/24 Unknown History multivitamin 1 tab PO DAILY 12/01/23 09/08/24 Unknown History Exam Airway Mallampati Class: I TM Dist: >3cm Neck ROM: Full Loose/Missing/Broken Teeth: No Heart: ok Lungs: ok Assessment and Plan Assessment Anesthesia Assessment: Anesthesia Plan Discussed Final Anesthetic Review NPO: Yes ASA Class: II Final Preanesthetic Review: No Changes in Pt Med Stat, Meds/Allgs Chart Reviewed, Consent Obtained/Reviewed and Anes Risks/Benef Reviewed Patient Risk: Low Procedure Risk: Intermediate Anesthetic Plan Anesthetic Plan: MAC: and Agree w/ Assess. and Plan Disposition: Standard PACU
--- NOTE | ~2024-09-08 | FL_ITS ---
EXAMINATION: FL GUIDANCE ONLY HISTORY: caudal epidural steroid injection COMPARISON: None available. TECHNIQUE: Fluoroscopy time: 12.5 seconds. Cumulative Dose: 5.4291 mGy. DAP: 2.2793 mGym2 Images: 2. FINDINGS: Images demonstrate a needle region of the lower sacrum. FL/FL guidance in OR IMPRESSION: Fluoroscopy during procedure. Please see procedure report for additional information. Electronically signed by: Juan Rey MD 09/08/2024 09:17 AM EDT
[2024-09-08] MEDS: Lactated Ringers 1,000 ML 100 ML IVCONT (07:33)
[2024-09-08 07:50] VITALS: BP 139/74; PULSE 76; RESP 18; TEMP 36.7; O2SAT 97
--- NOTE | 2024-09-08 07:51 | MHC.SHP ---
Pre-Procedural Eval Section A - 24 Hr Update-Section A only Date of Service: 09/08/24 The patient is an INPATIENT: No Changes since office visit: Yes Patient answered all questions The patient has been examined within 24 hours of the surgical procedure. The History & Physical has been completed within 30 days and I have reviewed it.: No Section B - Complete if H&P > 30 days Chief Complaint: Radiculopathy, lumbar region Details of Present Illness: As above Relevant Family History (Specify if Yes): No Relevant Social History: None Present Medications: see Short Stay Collaborative assessment Medical History: No relevant PMH History of Previous Operations: Relevant previous surgery/procedure and date(s) Allergies: Allergies Allergy/AdvReac Type Severity Reaction Status Date / Time prochlorperazine Allergy Severe Anaphylaxis Verified 09/08/24 07:42 [From Compazine] aspirin Allergy Intermediate Abdominal Verified 09/08/24 07:42 Pain Penicillins Allergy Intermediate Headache Verified 07/10/24 12:59 oxycodone Allergy bloody Verified 09/08/24 07:42 stools Review of Systems Sugical H&P ROS: Negative: Constitution, Cardiovascular, Respiratory, Neurological, Psychiatric, Hem-Onc, Allergic/Immunologic, Gastrointestinal, Genitourinary, Integumentary, Endocrine and Eyes/Ears/Nose/Throat and Yes, Specify: Musculoskeletal ( radiculopathy lumbar, postlaminectomy syndrome) Exam Surgical H&P Exam: Normal: HEENT, Normal: Heart, Normal: Lungs, Normal: Extremities, Normal: Abdomen, Normal: Skin and Normal: Neurological Plan Diagnosis/Plan: Unchanged I have reviewed the history and physical and performed a pertinent physical examination on my patient. No changes have occurred unless specified. Time Spent With Patient Time: Total time managing care of this patient today ____ minutes. I am going to perform caudal epidural steroid injection with catheter.
[2024-09-08 07:57] VITALS: BMI 23.9
[2024-09-08 08:48] VITALS: BP 135/78; PULSE 68; RESP 17; TEMP 36.9; O2SAT 98
--- NOTE | 2024-09-08 08:50 | PM.OP ---
Brief Operative Note Date of Service: 09/08/24 Pre-op diagnosis: radiculopathy lumbar Post-op diagnosis: same Procedure: attempt at caudal epidural steroid injection with catheter, changed to caudal epidural steroid injection without catheter Surgeon: Hill High MD Anesthesia: MAC Was an [employer]ary [employer] Drilling Machine Operator used for this Procedure?: No Estimated blood loss (mL): 1 Pathology: none sent Condition: stable Disposition: PACU
--- NOTE | 2024-09-08 08:51 | W.PM.OPN ---
Operative Note Operative Note Date of Service: 09/08/24 Narrative: attempt at caudal epidural steroid injection with catheter changed to Caudal epidural steroid injection without catheter. Informed consent was thoroughly explained to the patient risks and benefits were explained including risk of bleeding infection peripheral nerve damage spinal cord damage and headache. The patient was taken to the operating room and positioned prone on operating table with pillow under her abdomen. ASA monitors were applied and patient was deeply sedated. Time-out was performed delineating name and date of of the patient nature of the procedure, side andsite of the procedure, allergies of the patient need for antibiotics (none). The lower back of the patient and intergluteal crease were prepped with ChloraPrep twice. Self adhesive sterile utility towels were used to delineate the operating field. C-arm was brought over the operating field and picture of the sacral bone was demonstrated on the screen. 2.5 cm below the level of the sacral hiatus injection of the local anesthetic was performed lidocaine 1% forming skin wheal. After that 18 gauge epidural needle was inserted through the skin wheal and advanced to the sacral hiatus on intermittent anterior posterior and lateral views. When tip of the needle entered the hiatus injection of the contrast was performed Isovue M delineating epidurogram. 22 gauge epidural catheter was inserted through the needle and attempt was made to advance the epidural catheter into the epidural space. However it was very difficult to do. The catheter would not go because of the bony resistance it would meet. The decision was made to change the procedure for injection of the caudal epidural steroid injections without catheter. The catheter was removed, 30 mL of preservative-free normal saline was injected into the epidural needle and after that lidocaine preservative-free 1% mixed with Kenalog 40 mg was injected into the epidural space. Upon completion of the injection the needle was removed and dressing 4x4s with bacitracin was applied to the area of the needle stick. The patient tolerated procedure well she was taken outside of the operating room to recovery room where she recovered uneventfully.
[2024-09-08 08:53] VITALS: BP 128/78; PULSE 64; RESP 17; O2SAT 98
[2024-09-08 09:05] VITALS: BP 133/83; PULSE 81; RESP 16; TEMP 36.6; O2SAT 99
== END 2024-09-08 09:30 | disposition home or self-care (01) ==
PROVIDERS: PCP Internal Medicine; Visit Provider Anesthesiology
PROC: 3E0R3GC Introduction of Other Therapeutic Substance into Spinal Canal, Percutaneous Approach (ICD-10-PCS; CPT 62322; principal; 2024-09-08 10:10)
DX: M54.16 Radiculopathy, lumbar region (principal); M51.362 Other intervertebral disc degeneration, lumbar region with discogenic back pain and lower extremity pain; M43.17 Spondylolisthesis, lumbosacral region; Z79.899 Other long term (current) drug therapy; Z88.0 Allergy status to penicillin; Z88.8 Allergy status to other drugs, medicaments and biological substances; Z87.891 Personal history of nicotine dependence; Z98.890 Other specified postprocedural states
CPT/HCPCS: 62323; J2003; J2704; J3010; J3301; Q9965; Q9967

== ENCOUNTER → 2024-09-08 07:05 | Outpatient (BNV) | payer OTHER, SELFPAY | PROVIDERS: PCP Internal Medicine; Visit Provider Anesthesiology | DX: M54.16 Radiculopathy, lumbar region (principal) | CPT/HCPCS: 62323 ==

== ENCOUNTER 2024-09-18 14:41 | Outpatient (AMB) | payer OTHER, SELFPAY ==
--- NOTE | 2024-09-18 14:56 | MHC.OFFVIS ---
Vital Signs 09/18/24 15:13 Height 5 ft Weight 122 lb BMI 23.8 BP 151/102 H Blood Pressure Location Lt brachial Position Sitting Pulse 95 Intake Visit Reasons: Hemorrhoids with bleeding Intake Note: Patient is seen in office for evaluation of hemorrhoids, seen by Dr Kate 01/2024. Pt c/o: per pt had colonoscopy about a year ago, was given gabapentin for her sciatica and has notice blooding since, sometimes constipation and straining, blood in toilet and when wiping, denies n/v/d Checked [facility] [place]: NO colonoscopy in Record Courtesy Clerk Required: No Accompanied by: Self / Same As Patient Allergies prochlorperazine [From Compazine] Allergy (Severe, Verified 09/18/24 15:11) Anaphylaxis aspirin Allergy (Intermediate, Verified 09/18/24 15:11) Abdominal Pain Penicillins Allergy (Intermediate, Verified 09/18/24 15:11) Headache atorvastatin Allergy (Mild, Verified 09/18/24 15:11) Unknown duloxetine Allergy (Mild, Verified 09/18/24 15:11) Unknown sertraline Allergy (Mild, Verified 09/18/24 15:11) Unknown oxycodone Allergy (Verified 09/18/24 15:11) bloody stools Medication List - Last Reconciled 09/18/24 by Trevor Iverson MD acetaminophen (Tylenol) 325 mg PO QID PRN lidocaine 5% 1 patch topical QAM loratadine 10 mg PO QAM multivitamin 1 tab PO DAILY omega-3 fatty acids 1,000 mg PO QAM [rolling walker As directed Status post lumbar surgery, gait instability and difficulty walking.] HPI HPI Hemorrhoids with bleeding: Details: 59-year-old female referred for hemorrhoid issues. She describes seeing bright blood per rectum periodically with bowel movements. She says this started when she had been on pain medications for chronic back pain and left leg pain last year. She says that she would see small amounts of bright blood on wiping maybe once a month. The last time this happened was in July 2024. At that time, she says that she saw the blood on the toilet bowl and this was quite a lot. Denies any pain or swelling with the hemorrhoids. She had a colonoscopy in 2022 was was reported to be unremarkable. She denies constipation. She says she has stopped taking the narcotics for her back pain. [facility] Medical History (Updated 09/18/24 @ 15:38 by Trevor Iverson MD) Bleeding hemorrhoids Arthritis Gestational diabetes Migraine Clenching of teeth Snores COVID-19 Anxiety HLD (hyperlipidemia) Cervicalgia Disc degeneration, lumbar Back pain Depression Surgical History Hx of laminectomy (12/23/23) Hx of cholecystectomy (07/19/20) Hx of ovarian cystectomy Hx of excision of mass Hx of colonoscopy H/O: hysterectomy Family History Father Melanoma Mother Colon cancer Social History Household Members Other:: son Are you a primary home health care respiratory therapist to a significant other at home: No Do you presently have visiting nurse or other home services: No Patient Tobacco Use Status: Former Tobacco user Tobacco use type: Cigarette Years Smoked: 14 Review of Systems Const Denies chills and Denies fever(s) Card Denies chest pain, Denies dyspnea and Denies dyspnea on exertion Resp Denies cough, Denies dyspnea and Denies dyspnea on exertion GI Reports hematochezia and Denies change in bowel habits Denies hematuria Musc Denies back pain and Denies limited range of motion Neuro Denies focal weakness and Denies convulsions Psych Denies depression and Denies mood swings Physical Exam Const General: comfortable and no acute distress Orientation/consciousness: patient oriented x3 Neck Neck: Yes no lymphadenopathy Resp Auscultation: clear to auscultation bilaterally Cardio Rhythm: regular rhythm GI Other: Small external hemorrhoids Palpation (GI): Soft to palpation, nontender and no guarding Neuro General: patient oriented x3 Office Procedures Anoscopy She was in a kneeling mark-knife position. The anoscope was gently inserted a full examination of the anal canal was done. There was note of a mixed columns of internal and external hemorrhoid posteriorly. There was no bleeding. There were no other lesion. There was no fissure or any ulceration. There was no induration on digital exam. She had good sphincter tone. [id number] Assessment & Plan Assessment & Plan (1) Bleeding hemorrhoids: Code(s): K64.9 - Unspecified hemorrhoids Category: Medical Plan: She describes occasional bleeding from her hemorrhoids as described above. The last time this happened was in July of 2024 She says that this had no episodes anymore. However, she was concerned about this the last time this happened because there was quite a bit seen on the toilet He did have a long discussion with her about the technique of hemorrhoidectomy. I reviewed with her the risks including but not limited to bleeding, infections and postop pain. I explained to her what to expect postoperatively At this time, she says that she would like to hold off on surgery. She is going home to the [facility] for the next few months to take care of her father. She says she will come back to the office sometime in the next few months to have this re-evaluated. Coding Level of Care Code New Pt Level 3 (23118) Diagnoses Bleeding hemorrhoids K64.9 CPT Codes Details - CPT: 30900-[id number] ([id number])
[2024-09-18 15:13] VITALS: BP 151/102; PULSE 95; BMI 23.8
--- OUTSIDE RECORDS SUMMARY | 2024-09-18 17:11 | XMS_ITS | Clinical Summary ---
Author Organization [facility] ity Address [address] [place] [address] Care Team Providers Care Media Marketing Coordinator Name Role Phone Claudette Pineda MD Primary Care Provider [phone] Social History Tobacco Use Types Packs/Day Years Used Date Smoking Tobacco: Never Smokeless Tobacco: Never Comments Unknown Sex and Gender Information Value Date Recorded Sex Assigned at Not on file Legal Sex Female 12:20 AM EST Gender Identity Not on file Sexual Orientation Not on file Obstetrics History Plan of Treatment Health Maintenance Due Date Last Done Comments Breast Cancer Screening 1967 DTaP,Tdap,and Td Vaccines (1 - Tdap) 1986 Hepatitis B Vaccines (1 of 3 - 19+ 3-dose series) 1986 Cervical Cancer Screening: P ap Smear 1988 Pneumococcal Vaccine: 50+ Ye ars (1 of 1 - PCV) 2017 Zoster Vaccines (1 of 2) 2017 Cholesterol Screening (Lipid Panel) 05/10/2022 Colorectal Cancer Screening: Colonoscopy 05/10/2022 Depression Screening 05/10/2022 HIV Screening 05/10/2022 Hepatitis C Screening 05/10/2022 Social Influencers of Health Screening 05/10/2022 COVID-19 Vaccine ( - 2023-2 5 season) 2024 Influenza Vaccine (Season Ended) 2025 HIB Vaccines Aged Out No longer eligi [...] patient's age to complete this topic Meningococcal B Vaccine Aged Out No l onger eligible based on patient's age to complete [...] age to complete this topic Care Teams Media Marketing Coordinator Relationship Specialty Start Date End Date Claudette Pineda MD [address] [place] [address] PCP - General Internal Medicine 08/07/21
--- OUTSIDE RECORDS SUMMARY | 2024-09-18 17:11 | XMS_ITS | Patient Health Record ---
Author Organization [facility] Address [address] [place] [address] Care Team Providers Care Building Insulation Supervisor Name Role Phone Claudette Pineda Primary Care Provider Juan Wiley Unavailable [phone] Allergies Allergen (clinical drug ingredient) Drug/Non Drug Allergy documented on EMR Reaction Allergy Type Onset Date Status Compazine Unknown Drug Allergy Active Reason For Referral No Information Medications Medication SIG (Take, Route, Frequency, Duration) Notes Start Date End Date Status Benzonatate 200 MG Oral for 10 Active Loratadine 10 MG Oral for 30 A ctive Atorvastatin Calcium 40 MG Oral for 90 Active Dulcolax (colon prep) 5 MG take at 3:00 p.m and 7:00p.m. Orally two tablets twice a day for one day for 1 day 10/16/2022 Active MiraLax (colon prep) 17 GM/SCOOP 1 238 Gm bottle mixed with Gatorade or Crystal Light Orally begin at 5:00 p.m. the day before the procedure for 1 day 10/16/2022 Active Social History Tobacco Use: Social History Observation Description Date Details (start date - stop date) Never Smoker NA - NA Tobacco Use/Smoking Question Answer Notes Patient is a nonsmoker Alcohol Screen Question Answer Notes Did you have a drink contain ing alcohol in the past year? Yes How often did you have a dri nk containing alcohol in the past year? Never (0 point) How many drinks did you have on a typical day when you were drinking in the past year? 1 or 2 drinks (0 point) How often did you have 6 or more drinks on one occasion in the past year? Never (0 point) Points 0 Interpretation Negative Section Notes: Nonsmoker; no sig alcohol From the [place] 25 years ago Problems Problem Type SNOMED Code ICD Code Onset Dates Problem Status W/U Status Risk Notes Problem 609948113 Colon cancer screening (Z12.11) Active confirmed Problem 44720200 Rectal bleeding (K62.5) Active confirmed Problem 488965922 Family history o f colon cancer (Z80.0) Active confirmed Problem Diverticulosis of colon (746017578) Diverticulosis of colon (K57.30) Active confirmed Plan Of Treatment Future Test Test Name Order Date COLONOSCOPY 10/16/2022 Insurance Providers Payer Name Payer Address Payer Phone Subscriber Number Group Number Insured Name Patient Relationship to Insured Coverage Start Date Coverage End Date [facility] [facility] [address] [address] [place], [place] [id number] KARTIK GILLIAM Self - patient is the insured [facility] [address] [place] [address] [id number] KARTIK GILLIAM Self - patient is the insured Medical (General) History Medical History History ICD Code Denies MS,DM,CVA,Lung disease,renal dise ase Hyperlipidemia COVID 04/2022--had some diar susan with bleeding; had COVID 2 times before that Colonoscopy age 52 was negat pauline except for hemorrhoids; had negative colonoscopies age 37, 42, and 47 Anxiety Surgical History Surgery Date(Month/Year) Ovarian cyst Hysterectomy Right hand cyst
--- OUTSIDE RECORDS SUMMARY | 2024-09-18 17:11 | XMS_ITS ---
Author Name [facility] Organization Unknown Care Team Organization Name Specialty Phone Email Start Date End Da te [facility]
== END 2024-09-18 15:34 | disposition home or self-care (01) ==
LOC: HO.HGS 14:41
PROVIDERS: PCP Internal Medicine; Referring Provider Internal Medicine; Visit Provider Surgery
DX: K64.9 Unspecified hemorrhoids (principal)
CPT/HCPCS: 46600; 99203

== ENCOUNTER → 2024-09-18 14:41 | Outpatient (BNVA) | payer OTHER, SELFPAY | PROVIDERS: PCP Internal Medicine; Referring Provider Internal Medicine; Visit Provider Surgery | DX: K64.9 Unspecified hemorrhoids (principal) | CPT/HCPCS: 46600; 99202 ==

== ENCOUNTER 2025-04-18 10:26 | Outpatient (REF) | payer OTHER, SELFPAY ==
--- OUTSIDE RECORDS SUMMARY | 2025-04-18 12:28 | XMS_ITS | Clinical Summary ---
Author Organization [facility] Address [address] [place] [address] Phone Care Team Providers Care Salesperson Wigs Name Role Phone Claudette Pineda MD Primary Care Provider [phone] Allergies Active Allergy Reactions Criticality Noted Date Comments Penicillin 03/20/2025 STOMACH HILARY, BURNING. Medications meclizine (ANTIVERT) 25 mg tablet Take 1 tablet (25 mg total) by mouth 4 (four) times a day for 7 days. 28 tablet 03/20/2025 Encounters Date Type Department Care Team Description 03/20/2025 4:33 PM EDT - 03/20/2025 8:46 PM EDT Emergency [facility] Emergency [address] [place] [address] Mukund Marquez MD Dizziness (Primary Dx); Elevated blood pressure reading Discharge Disposition: Home or Self Care from Last 3 Months Surgical History Surgery Date Site/Laterality Comments LUMBAR SPINE SURGERY Medical History Medical History Date Comments Arthritis Social History Tobacco Use Types Packs/Day Years Used Date Smoking Tobacco: Never Smokeless Tobacco: Never Alcohol Use Standard Drinks/Week Comments Never 0 (1 standard drink = 0.6 oz pur e alcohol) Comments Unknown Sex and Gender Information Value Date Recorded Sex Assigned at Not on file Legal Sex Female 12:20 AM EST Gender Identity Not on file Sexual Orientation Not on file Obstetrics History Last Filed Vital Signs Vital Sign Reading Time Taken Comments Blood Pressure 150/84 03/20/2025 8:45 PM EDT Pulse 68 03/20/2025 8:45 PM EDT Temperature 36.8 C (98.2 F) 03/20/2025 8:45 PM EDT Respiratory Rate 16 03/20/2025 8:45 PM EDT Oxygen Saturation 100% 03/20/2025 8:45 PM EDT Inhaled Oxygen Concentration - - Weight 54.4 kg (120 lb) 03/20/2025 11:29 AM EDT Height 152.4 cm (5') 03/20/2025 11:29 AM EDT Body Mass Index 23.44 03/20/2025 11:29 AM EDT Plan of Treatment Health Maintenance Due Date Last Done Comments Breast Cancer Screening 1967 Colorectal Cancer Screening: Colonoscopy 1967 DTaP,Tdap,and Td Vaccines (1 - Tdap) 1986 Hepatitis B Vaccines (1 of 3 - 19+ 3-dose series) 1986 Cervical Cancer Screening: Pap Smear 1988 Cholesterol Screening (Lipid Panel) 05/10/2022 HIV Screening 05/10/2022 Hepatitis C Screening 05/10/2022 Social Influencers of Health Screening 05/10/2022 Depression Screening 06/07/2024 COVID-19 Vaccine ( season) 2025 12/23/2021, 05/10/2021, 01/29/2021, Additional history exists RSV Immunization Adult Patients (1 - 1-dose 75+ series) 2042 Pneumococcal Vaccine: 50+ Years Completed 12/30/2022 Zoster Vaccines Completed 05/05/2023, 01/17/2022 Influenza Vaccine Completed 02/23/2025, , 04/09/2023, Additional history exists HIB Vaccines Aged Out No longer eligi [...] to complete this topic RSV Immunization Patients Under 20 months Aged Out No longer eligible based on patient's age to complete this topic Varicella Vaccines Aged Out No longer eligible based on patient's age to complete this topic Procedures Procedure Name Priority Date/Time Associated Diagnosis Comments ECG ANNOTATED 03/21/2025 TROPONIN I HIGH SENSITIVITY STAT 03/20/2025 7:[address] ANGIO HEAD/NECK WO AND/OR W CONTRAST STAT 03/20/2025 5:56 PM EDT ECG 12-LEAD STAT 03/20/2025 11:50 AM EDT THYROXINE FREE STAT Add-on 03/20/2025 11:47 AM EDT THYROID STIMULATING HORMONE STAT Add-on 03/20/2025 11:47 AM EDT CBC WITH AUTO DIFFERENTIAL STAT 03/20/2025 11:47 AM EDT COMPREHENSIVE METABOLIC PANEL STAT 03/20/2025 11:47 AM EDT CBC AND DIFFERENTIAL STAT 03/20/2025 11:47 AM EDT from Last 3 Months Results * ECG-Annotated (03/21/2025) us Provider Onbase MD ECG ORDERABLES Final Result * Troponin I High Sensitivity (03/20/2025 7:22 PM EDT) High Sensitivity Troponin I 5 <=54 ng/L LAB CHEMISTRY METHOD 03/20/2025 8:01 PM EDT [facility] Blood Venous blood specimen / Unknown Venipuncture / Unknown 03/20/2025 7:22 PM EDT 03/20/2025 7:30 PM EDT Narrative [facility] - 03/20/2025 8:01 PM EDT High levels of biotin in samples may falsely decrease hsTroponin values. Use caution when interpreting hsTroponin results in patients taking biotin who exhibit renal impairment (eGFR <60) or in patients taking more than 20 mg/day of biotin. Mukund Marquez MD LAB BLOOD ORDERABLES Final Res ult [facility] [address] [place] [address], * CT Angio Head/Neck wo and/or w Contrast (03/20/2025 5:56 PM EDT) Anatomical Region Laterality Modality Head and Neck Computed Tomogra phy 03/20/2025 6:28 PM EDT Impressions 03/20/2025 6:28 PM EDT Impression: 1. No acute intracranial abnormalities. 2. Unremarkable CTA of the head and neck. 3. Incidental note is made of a 14 mm left lobe thyroid nodule. Nonemergent thyroid ultrasound could be performed for further evaluation. This document has been electronically signed by: Curly Krause MD on 03/20/2025 18:28:19 Narrative 03/20/2025 6:28 PM EDT INDICATION: Dizziness, vertigo Exam: Unenhanced CT brain, and contrast-enhanced CTA head and neck with multiplanar reformats. Comparison: None. Findings: Nonenhanced CT brain: No intracranial mass, midline shift, hydrocephalus, or acute hemorrhage. No CT evidence of acute ischemia. Visualized paranasal sinuses and mastoid air cells normal. Orbits unremarkable. No skull fracture. CTA head: There is good opacification of the bilateral anterior and posterior intracranial arterial circulations. No large vessel occlusion or significant intracranial arterial stenoses. No definable truncation of flow. No evidence of aneurysm or vascular malformation. No venous thrombosis or enhancing parenchymal lesions. CTA neck: Unremarkable aortic arch. Left vertebral artery arises from aortic arch, anatomic variant. Common and internal carotid arteries are patent bilaterally. Vertebral arteries are patent bilaterally. No occlusion, hemodynamically significant stenoses or evidence of dissection. Visualized pulmonary apices are clear. A 14 mm left lobe thyroid nodule is noted (6; 413). No other neck masses or adenopathy. Osseous structures reveal no destructive osseous lesions. Procedure Note Curly Krause MD - 03/20/2025 INDICATION: Dizziness, vertigo Exam: Unenhanced CT brain, and contrast-enhanced CTA head and neck with multiplanar reformats. Comparison: None. Findings: Nonenhanced CT brain: No intracranial mass, midline shift,hydrocephalus, or acute hemorrhage. No CT evidence of acute ischemia. Visualized paranasal sinuses and mastoid air cells normal. Orbits unremarkable. No skull fracture. CTA head: There is good opacification of the bilateral anterior and posterior intracranial arterial circulations. No large vessel occlusionor significant intracranial arterial stenoses. No definable truncation of flow. No evidence of aneurysm or vascular malformation. No venous thrombosis or enhancing parenchymal lesions. CTA neck: Unremarkable aortic arch. Left vertebral artery arises from aortic arch, anatomic variant. Common and internal carotid arteries are patent bilaterally. Vertebral arteries are patent bilaterally. No occlusion, hemodynamically significant stenoses or evidence ofdissection. Visualized pulmonary apices are clear. A 14 mm left lobe thyroid noduleis noted (6; 413). No other neck masses or adenopathy. Osseous structures reveal no destructive osseous lesions. IMPRESSION: Impression: 1. No acute intracranial abnormalities. 2. Unremarkable CTA of the head and neck. 3. Incidental note is made of a 14 mm left lobe thyroid nodule. Nonemergent thyroid ultrasound could be performed for furtherevaluation. This document has been electronically signed by: Curly Krause MD on 03/20/2025 18:28:19 Mukund Marquez MD IM CT PROCEDURES Final Result * ECG 12 lead (03/20/2025 11:50 AM EDT) Ventricular Rate ECG 69 BPM GEMUSE Atrial Rate 69 BPM GEMUSE P-R Interval 172 ms GEMUSE QRS Duration 78 ms GEMUSE Q-T Interval 348 ms GEMUSE QTc 372 ms GEMUSE P Wave [place] 50 degrees GEMUSE R [place] 12 degrees GEMUSE T [place] 85 degrees GEMUSE ECG Interpretation Normal sinus rhythm Septal infarct , age undetermined Abnormal ECG When compared with ECG of 30-JUL-2021 20:24, No significant change was found Confirmed by MD Sotero, Erasto ([id number]) on 03/21/2025 8:49:51 AM GEMUSE 03/20/2025 11:5 0 AM EDT 03/21/2025 8:49 AM EDT Edie GARRETT ECG ORDERABLES Final Re sult GEMUSE * (ABNORMAL) CBC auto differential (03/20/2025 11:47 AM EDT) WBC 4.1(L) 4.8 - 10.8 K/mcL LAB HEMETOLOGY METHOD 03/20/2025 12:47 PM EDT [facility] RBC 4.90(H) 3.80 - 4.80 M/mcL LAB HEMETOLOGY METHOD 03/20/2025 12:47 PM EDT [facility] Hemoglobin 13.1 11.5 - 16.0 g/dL LAB HEMETOLOGY METHOD 03/20/2025 12:47 PM EDT [facility] Hematocrit 40.6 35.0 - 47.0 % LAB HEMETOLOGY METHOD 03/20/2025 12:47 PM EDT [facility] MCV 82.9 79.0 - 98.0 FL LAB HEMETOLOGY METHOD 03/20/2025 12:47 PM EDT [facility] MCH 26.7(L) 27.0 - 32.0 pcg LAB HEMETOLOGY METHOD 03/20/2025 12:47 PM EDT [facility] MCHC 32.3 32.0 - 37.0 g/dL LAB HEMETOLOGY METHOD 03/20/2025 12:47 PM EDT [facility] RDW 13.3 11.0 - 15.0 % LAB HEMETOLOGY METHOD 03/20/2025 12:47 PM EDT [facility] Platelets 234 130 - 400 K/mcL LAB HEMETOLOGY METHOD 03/20/2025 12:47 PM EDT [facility] MPV 11.6(H) 7.0 - 11.0 FL LAB HEMETOLOGY METHOD 03/20/2025 12:47 PM EDT [facility] NRBC 0.0 <1.0 % LAB HEMETOLOGY METHOD 03/20/2025 12:47 PM [facility] NRBC Absolute 0.00 <0.10 K/mcL LAB HEMETOLOGY METHOD 03/20/2025 12:47 PM [facility] Neutrophils Relative 44.5 % LAB HEMETOLOGY METHOD 03/20/2025 12:47 PM [facility] Lymphocytes Relative 43.0 % LAB HEMETOLOGY METHOD 03/20/2025 12:47 PM [facility] Monocytes Relative 10.8 % LAB HEMETOLOGY METHOD 03/20/2025 12:47 PM [facility] Eosinophils Relative 1.0 % LAB HEMETOLOGY METHOD 03/20/2025 12:47 PM [facility] Basophils Relative 0.5 % LAB HEMETOLOGY METHOD 03/20/2025 12:47 PM [facility] Immature Granulocytes Relative 0.2 % LAB HEMETOLOGY METHOD 03/20/2025 12:47 PM [facility] Neutrophils Absolute 1.82 1.50 - 7.00 K/mcL LAB HEMETOLOGY METHOD 03/20/2025 12:47 PM [facility] Lymphocytes Absolute 1.76 1.00 - 5.00 K/mcL LAB HEMETOLOGY METHOD 03/20/2025 12:47 PM [facility] Monocytes Absolute 0.44 0.20 - 1.00 K/mcL LAB HEMETOLOGY METHOD 03/20/2025 12:47 PM [facility] Eosinophils Absolute 0.04 0.00 - 0.50 K/mcL LAB HEMETOLOGY METHOD 03/20/2025 12:47 PM EDT [facility] Basophils Absolute 0.02 0.00 - 0.20 K/mcL LAB HEMETOLOGY METHOD 03/20/2025 12:47 PM EDT [facility] Immature Granulocytes Absolute 0.01 0.00 - 0.03 K/mcL LAB HEMETOLOGY METHOD 03/20/2025 12:47 PM EDT [facility] Blood Venous blood specimen / Unknown Venipuncture / Unknown 03/20/2025 11:47 AM EDT 03/20/2025 12:38 PM EDT Edie GARRETT LAB BLOOD ORDERABLES Fin al Result Performing Organization Address City/[facility]/ZIP Co de Phone Number [facility] [address] [place] [address], [place] [phone] * Thyroid Stimulating Hormone (TSH) (03/20/2025 11:47 AM EDT) TSH 1.00 0.40 - 4.00 mcIU/mL LAB CHEMISTRY METHOD 03/20/2025 7:03 PM EDT [facility] Blood Venous blood specimen / Unknown Venipuncture / Unknown 03/20/2025 11:47 AM EDT 03/20/2025 12:38 PM EDT us Mukund Marquez MD LAB BLOOD ORDERABLES Final Res ult [facility] [address] [place] [address], [place] [phone] * T4, Free (03/20/2025 11:47 AM EDT) Free T4 1.27 0.70 - 1.80 ng/dL LAB CHEMISTRY METHOD 03/20/2025 7:03 PM EDT [facility] Blood Venous blood specimen / Unknown Venipuncture / Unknown 03/20/2025 11:47 AM EDT 03/20/2025 12:38 PM EDT us Mukund Marquez MD LAB BLOOD ORDERABLES Final Res ult [facility] [address] [place] [address], [place] [phone] * (ABNORMAL) Comprehensive metabolic panel (03/20/2025 11:47 AM EDT) Sodium 139 133 - 145 mmol/L LAB CHEMISTRY METHOD 03/20/2025 1:07 PM [facility] Potassium 4.0 3.5 - 5.5 mmol/L LAB CHEMISTRY METHOD 03/20/2025 1:07 PM [facility] Chloride 102 96 - 110 mmol/L LAB CHEMISTRY METHOD 03/20/2025 1:07 PM [facility] CO2 30 21 - 32 mmol/L LAB CHEMISTRY METHOD 03/20/2025 1:07 PM [facility] Anion Gap 7 3 - 11 LAB CHEMISTRY METHOD 03/20/2025 1:07 PM [facility] Glucose 109(H) 70 - 100 mg/dL LAB CHEMISTRY METHOD 03/20/2025 1:07 PM [facility] BUN 10 5 - 25 mg/dL LAB CHEMISTRY METHOD 03/20/2025 1:07 PM [facility] Creatinine 0.71 0.50 - 1.10 mg/dL LAB CHEMISTRY METHOD 03/20/2025 1:07 PM [facility] eGFR 99 >=60 mL/min/1. 73m2 LAB CHEMISTRY METHOD 03/20/2025 1:07 PM [facility] Comment:Calculation based on the Chronic Kidney Disease Epidemiology Collaboration (CKD-EPI) equation refit without adjustment for race. BUN/Creatinine Ratio 14.1 LAB CHEMISTRY METHOD 03/20/2025 1:07 PM EDT [facility] Calcium 9.6 8.5 - 10.5 mg/dL LAB CHEMISTRY METHOD 03/20/2025 1:07 PM EDT [facility] AST (SGOT) 30 10 - 42 unit/L LAB CHEMISTRY METHOD 03/20/2025 1:07 PM [facility] ALT (SGPT) 54 10 - 60 unit/L LAB CHEMISTRY METHOD 03/20/2025 1:07 PM EDT [facility] Alkaline Phosphatase 86 42 - 121 unit/L LAB CHEMISTRY METHOD 03/20[facility]2025 [facility] Total Protein 7.7 6.0 - 8.0 g/dL LAB CHEMISTRY METHOD 03/20/2025 1:07 PM [facility] Albumin 4.3 3.2 - 5.0 g/dL LAB CHEMISTRY METHOD 03/20/2025 1:07 PM [facility] Total Bilirubin 0.4 0.0 - 1.4 mg/dL LAB CHEMISTRY METHOD 03/20/2025 1:07 PM [facility] Blood Venous blood specimen / Unknown Venipuncture / Unknown 03/20/2025 11:47 AM EDT 03/20/2025 12:38 PM EDT Edie GARRETT LAB BLOOD ORDERABLES Fin al Result [facility] [address] [place] [address], from Last 3 Months Insurance MEDICAID - [place] Care Teams Salesperson Wigs Relationship Specialty Start Date End Date Claudette Pineda MD [address] PCP - General Internal Medicine 08/07/21
--- OUTSIDE RECORDS SUMMARY | 2025-04-18 12:28 | XMS_ITS | Patient Health Record ---
Author Organization [facility] Address [address] [place] [address] Care Team Providers Care Traffic Sergeant Name Role Phone Claudette Pineda Primary Care Provider Juan Wiley Unavailable [phone] Allergies Allergen (clinical drug ingredient) Drug/Non Drug Allergy documented on EMR Reaction Allergy Type Onset Date Status Compazine Unknown Drug Allergy Active Reason For Referral No Information Medications Medication SIG (Take, Route, Frequency, Duration) Notes Start Date End Date Status Benzonatate 200 MG Oral; Duration: 10 Active Loratadine 10 MG Oral; Duration: 30 Active Atorvastatin Calcium 40 MG Oral; Duration: 90 Active Dulcolax (colon prep) 5 MG take at 3:00 p.m and 7:00p.m. Orally two tablets twice a day for one day; Duration: 1 day 10/16/2022 Active MiraLax (colon prep) 17 GM/SCOOP 1 238 Gm bottle mixed with Gatorade or Crystal Light Orally begin at 5:00 p.m. the day before the procedure; Duration: 1 day 10/16/2022 Active Social History Tobacco [...] Notes: Nonsmoker; no sig alcohol [place] 25 [place] ago Problems Problem Type SNOMED Code ICD Code Onset Dates Problem Status W/U Status Risk Notes Problem Colon cancer screening (234197401) Colon cancer screening (Z12.11) Active confirmed Problem Rectal bleeding (72816225) Rectal bleeding (K62.5) Active confirmed Problem Family History of Cancer of Colon (Situation) (330765178) Family history of colon cancer (Z80.0) Active confirmed Problem Diverticulosis of colon (504474146) Diverticulosis of colon (K57.30) Active confirmed Plan Of Treatment Future Test Test Name Order Date COLONOSCOPY 10/16/2022 Insurance Providers Payer Name Payer Address Payer Phone Subscriber Number Group Number Insured Name Patient Relationship to Insured Coverage Start Date Coverage End Date [facility] [employer] [facility] [address] [address] [place], [place] [id number] KARTIK GILLIAM Self - patient is the insured MED[employer]ID OF [employer] [address] [place] [address] [id number] KARTIK GILLIAM Self - patient is the insured Medical (General) History Medical History History ICD Code Denies [place],DM,CVA,Lung disease,renal dise ase Hyperlipidemia COVID 04/2022--had some diar susan with bleeding; had COVID 2 times before that Colonoscopy age 52 was negat pauline except for hemorrhoids; had negative colonoscopies age 37, 42, and 47 Anxiety Surgical History Surgery Date(Month/Year) Ovarian cyst Hysterectomy Right hand cyst
[2025-04-18 13:05] LABS: Resp Syncy Virus RNA Qual PCR NEGATIVE (Negative); SARS COV2 PCR INHOUSE NEGATIVE (Negative)
[2025-04-18 13:41] LABS: Alanine Aminotransferase 27 U/L (0-31); Albumin Level 4.7 g/dL (3.5-5.0); Alkaline Phosphatase 85 U/L (39-117); Anion Gap 12 (12-20); Aspartate Amino Transferase 27 U/L (5-31); Blood Urea Nitrogen 11 mg/dL (9-16); Calcium 9.7 mg/dL (8.4-10.2); Carbon Dioxide 27 mmol/L (22-29); Chloride 106 mmol/L (96-108); Cholesterol 218 mg/dL (<200); Estimated Glomerular Filt Rate > 60; HDL Cholesterol 39 mg/dL (>40); Potassium 3.8 mmol/L (3.3-5.1); Sodium 141 mmol/L (135-145); Total Protein 7.8 g/dL (6.5-8.0); Triglycerides 374 mg/dL (<150)
== END 2025-04-18 10:27 | disposition home or self-care (01) ==
LOC: HO.10HDL 10:26
PROVIDERS: PCP Internal Medicine; Visit Provider Internal Medicine
DX: Z00.01 Encounter for general adult medical examination with abnormal findings (principal); M54.16 Radiculopathy, lumbar region; E78.00 Pure hypercholesterolemia, unspecified; I10 Essential (primary) hypertension; J09.X2 Influenza due to identified novel influenza A virus with other respiratory manifestations; N64.4 Mastodynia; Z90.710 Acquired absence of both cervix and uterus
CPT/HCPCS: 36415; 80053; 80061; 87637; 99212

== ENCOUNTER 2025-04-18 12:59 | Outpatient (AMB) | payer OTHER, SELFPAY ==
--- NOTE | 2025-04-18 13:01 | HO.SPINEOV ---
Intake Visit Reasons: numbness on left feet Intake Note: Ms. Lori Grant is here today c/o numbness on left foot. Master Certified Rv Technician Required: No Allergies prochlorperazine (From Compazine) Allergy (Severe, Verified 04/18/25 13:17) Anaphylaxis aspirin Allergy (Intermediate, Verified 04/18/25 13:17) Abdominal Pain Penicillins Allergy (Intermediate, Verified 04/18/25 13:17) Headache atorvastatin Allergy (Mild, Verified 04/18/25 13:17) Unknown duloxetine Allergy (Mild, Verified 04/18/25 13:17) Unknown sertraline Allergy (Mild, Verified 04/18/25 13:17) Unknown oxycodone Allergy (Verified 04/18/25 13:17) bloody stools Assessment & Plan Assessment & Plan (1) Radiculopathy, lumbar region: Code(s): M54.16 - Radiculopathy, lumbar region Category: Medical Plan Chanel is a pleasant 59-year-old female comes in today for a subsequent evaluation after last being seen in our clinic in June of this year. To recap she had a Bilateral L5 Laminotomy, Partial facetectomy and foraminotomy completed in December of 2023. After Dr. Olson and I reviewed her last MRI imaging he offered her a Left-sided L5 foraminotomy. She decided to pursue injections and conservative treatments instead. Today, she reports that she has been managing her symptoms with conservative measures at home for the last 10 months or so. She does feel like her pain subsided significantly, and she does overall feel much better than she did prior to surgery. Unfortunately, she states that she still functionally he is not back to where she was prior to her preoperative pain leading to surgery. She is still unable to do Yoga, or continue activity for prolonged periods of time without experiencing flare ups of pain and cramping near her posterior thighs. She wished to come in today to discuss the possibility of a repeat MRI and potentially going to physical therapy. On examination the patient has full strength of her bilateral lower extremities, ambulates well without the assistance of a walker any other assistive device. She rises from a seated position without difficulty without needing to brace herself on the chair. She reports some sensational deficits nearly left lateral heel and some tingling in her left toes. Otherwise her sensation is normal. (-) bilateral straight leg raise. I would like to send Chanel for a course of physical therapy to try and work out some of this residual pain that seems to continue to flare-up with increased activity. I also think a repeat lumbar MRI would be beneficial to identify any worsening or continued nerve compression given her report of left heel numbness and continued exacerbations of pain. Anthony Olson MD,PhD [facility] Orders: Orders PT Evaluation and Treatment 04/18/25 M54.16 - Radiculopathy, lumbar region MR lumbar spine wo/w con 04/18/25 M54.16 - Radiculopathy, lumbar region Coding Level of Care Code Est Pt Level 3 (19920) Diagnoses Radiculopathy, lumbar region M54.16
== END 2025-04-18 13:38 | disposition home or self-care (01) ==
LOC: HO.HNS 13:00
PROVIDERS: PCP Internal Medicine; Visit Provider Physician Assistant
DX: M54.16 Radiculopathy, lumbar region (principal)
CPT/HCPCS: 99213